=== PATIENT | female | born 1940 | race Caucasian/White ===

== ENCOUNTER 2018-05-28 11:58 | Inpatient (IN) | payer MEDICARE, SELFPAY ==
[2018-05-28] VITALS (10 sets, daily range): BP systolic 145–223; BP diastolic 77–99; PULSE 80–125; RESP 14–27; TEMP 36.8; O2SAT 70–96; BMI 31.8; BMI 30.7
--- NOTE | 2018-05-28 12:04 | NURSING ---
NO OLD EKGS
--- NOTE | 2018-05-28 12:14 | EKG12_ITS ---
Test Reason : CP SOB Blood Pressure : / mmHG Vent. Rate : 123 BPM Atrial Rate : 123 BPM P-R Int : 146 ms QRS Dur : 080 ms QT Int : 300 ms P-R-T Axes : 039 055 035 degrees QTc Int : 429 ms Sinus tachycardia Otherwise normal ECG Confirmed by SETH ROOT, LUDY ([id number]), video news editor DEBBIE RODRIGUEZ ([id number] on 06/02/2018 2:44:42 PM Referred By: SHAMAR Confirmed By:LUDY ANN MD
--- NOTE | 2018-05-28 12:14 | RAD_ITS ---
STUDY: X-RAY CHEST REASON FOR EXAM: Female, 77 years old. Chest pain and pressure x1 week TECHNIQUE: Single AP portable view of the chest. COMPARISON: None. FINDINGS: EKG leads overlie the chest Lungs are hyperexpanded with chronic interstitial changes, no superimposed acute pulmonary process. There is no demonstrated pleural abnormality. Normal size heart. Normal mediastinum and abel. Normal visualized pulmonary arteries. There is atherosclerotic calcification of the aortic arch with tortuosity. Normal visualized thoracic spine. Normal visualized ribs, clavicles, and shoulders. There is no demonstrated abnormality of the visualized soft tissue structures of the upper abdomen. RAD/Chest 1 View (Portable) IMPRESSION: Hyperexpanded lungs with chronic interstitial changes, no superimposed acute pulmonary process. Electronically Signed: Saulo Jenkins MD at 12:31 EDT , Service support ,
[2018-05-28 12:36] LABS: Absolute Lymphocyte Count 2.08 X10^3/ul (0.83-4.51); Absolute Neutrophil Count 8.3 X10^3/uL (2.0-7.7); Basophil# 0.05 X10^3/uL; Basophil% 0.4 % (0-1); Eosinophil# 0.15 X10^3/uL; Eosinophils% 1.3 % (0-5); Hematocrit 41.3 % (37-47); Hemoglobin 13.8 g/dl (12.0-15.0); Lymphocyte # 2.08 X10^3/ul (4.0); Lymphocyte % 18.4 % (19-41); Mean Corp Hgb Conc 33.4 g/gl (32-36); Mean Corpuscular Hgb 29.7 pg (27.0-32.0); Mean Platelet Vol. 10.6 fl (6.2-12.0); Monocyte% 6.2 % (0-10); Neutrophil # 8.28 X10^3/uL (2.7-7.7); Neutrophil % 73.5 % (47-70); POSITIVE COUNT NO; POSITIVE DIFFERENTIAL NO; POSITIVE MORPHOLOGY NO; Platelet Count 331 K/mm3 (150-450); RBC Distribution Width CV 13.5 % (11.6-14.6); RBC Distribution Width SD 44.1 fl (35.1-43.9); Red Blood Count 4.64 M/mm3 (4.2-5.4); White Blood Count 11.3 K/mm3 (4.4-11.0)
[2018-05-28 12:44] LABS: Anion Gap 9 (5-15); BUN 8 mg/dL (7-18); BUN/Creat Ratio 11.3 RATIO (10-20); Calcium,Total 8.6 mg/dL (8.5-10.1); Chloride 95 mmol/L (98-107); Creatinine, Serum 0.71 mg/dL (0.55-1.02); EST Glomerular Filtration Rate 85 mL/min (>60); Est Glom Filt Rate - Afr Amer 102 mL/min (>60); Estimated Creatinine Clearance 38.97 ml/min; Glucose 203 mg/dL (74-106); Sodium Level 126 mmol/L (136-145)
[2018-05-28] MEDS: Aspirin 81 MG TAB.CHEW 324 MG PO (12:48)
--- NOTE | 2018-05-28 13:12 | CT_ITS ---
STUDY: CTA CHEST REASON FOR EXAM: Female, 77 years old. Substernal chest pressure x1 week RADIATION DOSAGE (If Supplied By Facility): CTDIvol = ( 14.74 ) mGy, DLP = ( 513.49 ) mGycm TECHNIQUE: The examination was performed with the intravenous administration of 75 ml of Isovue 370 contrast material. Post-processing of the angiographic images was performed, with multiplanar reformation and 3D reconstruction. Individualized dose optimization techniques were used for this CT. COMPARISON: None. FINDINGS: Normal enhancement of the main pulmonary artery and right and left pulmonary arteries. Normal enhancement of the bilateral peripheral pulmonary arteries. There is no demonstrated pulmonary embolism. There is atherosclerotic calcification of the aortic arch with tortuosity. There is no demonstrated aortic dissection. Normal heart and pericardium. There are calcifications of the coronary arteries. There are scattered enlarged mediastinal, perihilar, and subcarinal lymph nodes measuring up to 1.3 cm in short axis dimension. There are subcentimeter axillary lymph nodes noted. There is peribronchial thickening. The lungs are hyper expanded, with flattening of the hemidiaphragms. Chronic interstitial fibrotic changes in both lung [place] with emphysematous blebs in both upper lobes and nonspecific pleural thickening. I do not see a suspicious noncalcified mass or nodule. There are degenerative changes of thoracic spine. Limited cuts through the upper abdomen show a 1.2 cm likely left adrenal adenoma. CT/CTA Chest W/WO Contrast IMPRESSION: No demonstrated PE, or thoracic aortic aneurysm or dissection. Worrisome enlarged mediastinal, perihilar, and subcarinal lymph nodes Underlying emphysema with chronic interstitial fibrotic changes, bleb formation in the apices, and diffuse pleural thickening. Evidence of chronic bronchitis 1.2 cm likely left adrenal adenoma Degenerative bony changes Electronically Signed: Saulo Jenkins MD at 14:28 EDT , Service support ,
--- NOTE | 2018-05-28 14:47 | ED.VISSUMM ---
- ER Visit Summary Date of Service: 05/28/18 Chief Complaint: Chest pain and dyspnea History of Present Illness: The patient is a 77 F who presents with midsternal tight pressure sensation with nausea and dyspnea for the past several days. She states she has this discomfort with exertion. Resolves several minutes after she stops her activity. She denies any significant past medical history. She states only risk factor for coronary artery disease is a former smoker. She quit 10 years ago. She has no history of PE or DVT. She has no prior history of PE or DVT. Review of systems positive for the chest tightness, dyspnea, dyspnea on exertion and nausea otherwise all other questions were answered with a negative response. Physical Examination: Vital signs remarkable blood pressure 233/90. Temperature 98.3 heart rate 125 respiration 27 a pulse ox of 68% on room air initially. Head is atraumatic normocephalic. Pupils are equal round reactive. Extraocular muscles are intact. TMs are pearly white with landmarks noted. Nares patent with no drainage. Posterior pharynx without erythema or exudate. Uvula is midline. There is no dysphonia or dysphasia. Trachea is midline. There is no stridor with auscultation of the neck. Heart is regular and rapid without murmur, gallop or rub. There is fine and inspiratory rales noted on auscultation bilaterally. Abdomen soft nontender. There is no asymmetry, swelling, discoloration, leg vein distention, palpable cords or tenderness along the distribution of the deep venous system. Neuro exam is nonfocal Test Results: EKG sinus tachycardia rate of 125 with normal SC interval, QRS duration and axis. There is no evidence of ischemia. Portable chest x-ray reveals interstitial fibrotic changes. White count slightly elevated 11.3 thousand. Sodium is 126 chloride 95 and glucose 205. Troponins less than 0.015. CTA of the chest was obtained because there was no obvious expiration chest x-ray for her hypoxia. There is abnormal. Hilar and mediastinal nodes per radiologist. Is no evidence of pulmonary embolus. There is chronic fibrotic changes noted. Emergency Department Course and Treatment: With history of exertional angina cardiac workup was undertaken. Once I was made aware of the low pulse ox and tachycardia and no significant N O'Denys noted on chest x-ray and CTA of the chest was obtained to evaluate for pulmonary embolus. Treatment Plan: Admit PCU Disposition: Admit PCU for further testing to evaluate because of hypoxia and exertional chest pain Impression: 1. Exertional midsternal chest pain 2. Hypoxia/respiratory failure This note was generated with [employer] dictation software. It may contain incorrect words, spelling, and punctuation that were not noted in review of the chart prior to signing ED Disposition - Plan for ED Patient: Chief Complaint: Shortness of Breath Referrals: Care Physician,No Primary [Primary Care Provider] -
--- NOTE | 2018-05-28 14:50 | NURSING ---
DR NIRAJ IBANEZ
--- NOTE | 2018-05-28 14:52 | ED.DCSUM_ITS ---
- ER Visit Summary Date of Service: 05/28/18 Chief Complaint: Chest pain and dyspnea History of Present Illness: The patient is a 77 F who presents with midsternal tight pressure sensation with nausea and dyspnea for the past several days. She states she has this discomfort with exertion. Resolves several minutes after she stops her activity. She denies any significant past medical history. She states only risk factor for coronary artery disease is a former smoker. She quit 10 years ago. She has no history of PE or DVT. She has no prior history of PE or DVT. Review of systems positive for the chest tightness, dyspnea, dyspnea on exertion and nausea otherwise all other questions were answered with a negative response. Physical Examination: Vital signs remarkable blood pressure 233/90. Temperature 98.3 heart rate 125 respiration 27 a pulse ox of 68% on room air initially. Head is atraumatic normocephalic. Pupils are equal round reactive. Extraocular muscles are intact. TMs are pearly white with landmarks noted. Nares patent with no drainage. Posterior pharynx without erythema or exudate. Uvula is midline. There is no dysphonia or dysphasia. Trachea is midline. There is no stridor with auscultation of the neck. Heart is regular and rapid without murmur, gallop or rub. There is fine and inspiratory rales noted on auscultation bilaterally. Abdomen soft nontender. There is no asymmetry, swelling, discoloration, leg vein distention, palpable cords or tenderness along the distribution of the deep venous system. Neuro exam is nonfocal Test Results: EKG sinus tachycardia rate of 125 with normal MS interval, QRS duration and axis. There is no evidence of ischemia. Portable chest x-ray reveals interstitial fibrotic changes. White count slightly elevated 11.3 thousand. Sodium is 126 chloride 95 and glucose 205. Troponins less than 0.015. CTA of the chest was obtained because there was no obvious expiration chest x- ray for her hypoxia. There is abnormal. Hilar and mediastinal nodes per radiologist. Is no evidence of pulmonary embolus. There is chronic fibrotic changes noted. Emergency Department Course and Treatment: With history of exertional angina cardiac workup was undertaken. Once I was made aware of the low pulse ox and tachycardia and no significant N O'Denys noted on chest x-ray and CTA of the chest was obtained to evaluate for pulmonary embolus. Treatment Plan: Admit PCU Disposition: Admit PCU for further testing to evaluate because of hypoxia and exertional chest pain Impression: 1. Exertional midsternal chest pain 2. Hypoxia/respiratory failure This note was generated with [employer] dictation software. It may contain incorrect words, spelling, and punctuation that were not noted in review of the chart prior to signing ED Disposition - Plan for ED Patient: Chief Complaint: Shortness of Breath Referrals: Care Physician,No Primary [Primary Care Provider] -
--- NOTE | 2018-05-28 14:52 | NURSING ---
DR HEALY IN WITH PATIENT
--- NOTE | 2018-05-28 14:57 | NURSING ---
PCU RESP FAILURE, WITH HYPOXIA, EXERTIONAL MIDSTERNAL CP IBANEZ/JOPPERI
--- NOTE | 2018-05-28 15:07 | PCM.HP.STD ---
Problem List (1) COPD with acute exacerbation Status: Acute (2) Acute respiratory failure with hypoxia Status: Acute (3) Hyponatremia Status: Acute History of Present Illness Date of Admission: 05/28/18 Chief Complaint: dyspnea on exertion The patient is a 77 year old F who has been experiencing dyspnea on exertion past week. Being that she was not getting better she presented to the emergency room and was noted to be toxic at 74% on room air. Patient was put on oxygen and did improve into the 90s. Given patient's dyspnea on exertion patient on a CT antrum of the chest that showed some blebs and also some enlarged mediastinal, perihilar and subcarinal lymph nodes. Patient has not been to a doctor in years and diagnosed with COPD in the past though is a former smoker [] Past Medical History Allergies No Known Allergies Allergy (Verified 05/28/18 12:09) Home Medications: Ambulatory Orders Medication Instructions Recorded NK [NK] 05/28/18 Psychiatric History: No pertinent psych hx Lives: Alone Smoking Status: Former smoker Alcohol: None Drugs: None - *Family History Paternal History Items: COPD Review of Systems Constitutional: Denies: Chills, Fever, Weight Change Eyes: Denies: Blurred vision, Double vision HEENT: Denies: Head Aches, Sinus Congestion, Sinus Drainage Cardiovascular: Denies: Chest Pain, Palpitations Respiratory: Reports: Cough, Shortness of breath upon exertion. Denies: Sputum production Gastrointestinal: Denies: Abdominal Pain, Nausea, Vomiting Genitourinary: Denies: Dysuria Musculoskeletal: Denies: Joint Pain, Joint Tenderness Skin: Denies: Rash, Wounds Neurological: Denies: Numbness, Tingling, Focal weakness Psychiatric: Denies: Anxiety, Depression Hematologic/ Lymphatic: Denies: Easy Bruising, Easy Bleeding, Hx of blood clot Comment: All review of systems are negative except as mentioned in the history of present illness and the other review of systems. VTE Information - Inpt Only VTE Present on Admission: No VTE Mechan Device Prophylaxis: None VTE Pharm Prophylaxis ordered?: Yes Patient Problems: Active and Suspected Problems COPD with acute exacerbation (Acute) Acute respiratory failure with hypoxia (Acute) Hyponatremia (Acute) - Physical Exam General: Alert, Cooperative, No apparent distress HEENT: Atraumatic, Normocephalic Oral: Moist Mucosa, No Gingival or Mucosal Lesions/ Ulcerations Neck: No Nodes, Thyroid Normal Size and Texture Lungs: Clear to auscultation, No rhonchi, No wheeze, Diminished Cardiovascular: Regular rate, Regular Rhythm, Normal S1, Normal S2, No murmurs Abdomen: Bowel Sounds Present, Soft, Non Tender, Non-Distended, No Hepato-splenomegaly Extremities: No edema, No Calf Tenderness Skin: No rashes, No breakdown Musculoskeletal: No Tenderness to Palpation of Joints or Extremities, No Muscle Wasting Neurological: Deep Tendon Reflexes 2+/4 and Symmetrical, Neuro grossly intact, Sensory exam intact to light touch and pain Psych/Mental Status: Normal Affect, Appropriate Vital Signs Temp Pulse Resp BP Pulse Ox 36.8 C 96 14 156/90 H 96 05/28/18 12:03 05/28/18 14:11 05/28/18 14:11 05/28/18 14:11 05/28/18 14:11 Oxygen Flow Rate (L/min) 5 Oxygen Delivery Method Nasal Cannula Weight: 81.4 kg Body Mass Index (BMI) 31.8 Laboratory Tests Past 24 Hrs 05/28/18 05/28/18 12:20 12:20 WBC 11.3 H RBC 4.64 Hgb 13.8 Hct 41.3 MCV 89.0 MCH 29.7 MCHC 33.4 RDW 13.5 RDW Differential 44.1 H Plt Count 331 MPV 10.6 Immature Gran % (Auto) 0.200 Neut % (Auto) 73.5 H Lymph % (Auto) 18.4 L [place] % (Auto) 6.2 Eos % (Auto) 1.3 Baso % (Auto) 0.4 Absolute Neuts (auto) 8.3 H Absolute Lymphs (auto) 2.08 Total Counted Not Reportable Sodium 126 L Potassium 4.0 Chloride 95 L Carbon Dioxide 22.0 Anion Gap 9 BUN 8 Creatinine 0.71 Estim Creat Clear Calc 38.97 Est GFR (MDRD) Af Amer 102 Est GFR (MDRD) Non-Af 85 BUN/Creatinine Ratio 11.3 Glucose 203 H Calcium 8.6 Troponin I < 0.015 CT imaging of the chest reviewed and showed no edema, no pulmonary embolism, no pulmonary edema. Did show some blebs in the upper airways. EKG showed sinus tachycardia with no acute changes. Assessment/Plan All Active Problems COPD with acute exacerbation (Acute) Acute respiratory failure with hypoxia (Acute) Hyponatremia (Acute) 1. Acute hypoxic respiratory failure Secondary to COPD exacerbation I suspect that the patient is probably been hypoxic for a while and then just had a tipping point where she became more short of breath with exertion. This is only suspected as patient has not seen a doctor in years. I just would have expected the patient to be much more short of breath than she was upon her arrival. Check an ambulatory pulse ox to see the patient will require oxygen upon discharge. 2. Acute COPD exacerbation Steroids with Solu-Medrol for now and bronchodilators I recommend patient follow-up with pulmonology as outpatient to undergo pulmonary function test to assess the degree of her COPD severity. 3. Hyponatremia No prior labs to compare to We will give the patient normal saline IV fluid and evaluate the BMP in the morning 4. Pulmonary lymph nodes Noted mediastinal, perihilar and subcarinal Follow-up as outpatient 5. 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 DVT prophylaxis with Lovenox 7. Advanced care planning discussed with the patient and her daughter at bedside. Patient does not have decision at this point time. I discussed with them that I am not concerned about any acute cardiac arrest or respiratory arrest during the course of her hospitalization but did implore them to discuss this further in the future. Code Visit Inpatient E&M: 40230 Init Hosp L3
--- NOTE | 2018-05-28 15:11 | NURSING ---
MED SURG ACUTE COPD EXAC NIRAJ
--- NOTE | 2018-05-28 15:19 | HP.PCM_ITS ---
Problem List (1) COPD with acute exacerbation Status: Acute (2) Acute respiratory failure with hypoxia Status: Acute (3) Hyponatremia Status: Acute History of Present Illness Date of Admission: 05/28/18 Chief Complaint: dyspnea on exertion The patient is a 77 year old F who has been experiencing dyspnea on exertion past week. Being that she was not getting better she presented to the emergency room and was noted to be toxic at 74% on room air. Patient was put on oxygen and did improve into the 90s. Given patient's dyspnea on exertion patient on a CT antrum of the chest that showed some blebs and also some enlarged mediastinal, perihilar and subcarinal lymph nodes. Patient has not been to a doctor in years and diagnosed with COPD in the past though is a former smoker [] Past Medical History Allergies No Known Allergies Allergy (Verified 05/28/18 12:09) Home Medications: Ambulatory Orders Medication Instructions Recorded NK [NK] 05/28/18 Psychiatric History: No pertinent psych hx Lives: Alone Smoking Status: Former smoker Alcohol: None Drugs: None - *Family History Paternal History Items: COPD Review of Systems Constitutional: Denies: Chills, Fever, Weight Change Eyes: Denies: Blurred vision, Double vision HEENT: Denies: Head Aches, Sinus Congestion, Sinus Drainage Cardiovascular: Denies: Chest Pain, Palpitations Respiratory: Reports: Cough, Shortness of breath upon exertion. Denies: Sputum production Gastrointestinal: Denies: Abdominal Pain, Nausea, Vomiting Genitourinary: Denies: Dysuria Musculoskeletal: Denies: Joint Pain, Joint Tenderness Skin: Denies: Rash, Wounds Neurological: Denies: Numbness, Tingling, Focal weakness Psychiatric: Denies: Anxiety, Depression Hematologic/ Lymphatic: Denies: Easy Bruising, Easy Bleeding, Hx of blood clot Comment: All review of systems are negative except as mentioned in the history of present illness and the other review of systems. VTE Information - Inpt Only VTE Present on Admission: No VTE Mechan Device Prophylaxis: None VTE Pharm Prophylaxis ordered?: Yes Patient Problems: Active and Suspected Problems COPD with acute exacerbation (Acute) Acute respiratory failure with hypoxia (Acute) Hyponatremia (Acute) - Physical Exam General: Alert, Cooperative, No apparent distress HEENT: Atraumatic, Normocephalic Oral: Moist Mucosa, No Gingival or Mucosal Lesions/ Ulcerations Neck: No Nodes, Thyroid Normal Size and Texture Lungs: Clear to auscultation, No rhonchi, No wheeze, Diminished Cardiovascular: Regular rate, Regular Rhythm, Normal S1, Normal S2, No murmurs Abdomen: Bowel Sounds Present, Soft, Non Tender, Non-Distended, No Hepato- splenomegaly Extremities: No edema, No Calf Tenderness Skin: No rashes, No breakdown Musculoskeletal: No Tenderness to Palpation of Joints or Extremities, No Muscle Wasting Neurological: Deep Tendon Reflexes 2+/4 and Symmetrical, Neuro grossly intact, Sensory exam intact to light touch and pain Psych/Mental Status: Normal Affect, Appropriate Vital Signs Temp Pulse Resp BP Pulse Ox 36.8 C 96 14 156/90 H 96 05/28/18 12:03 05/28/18 14:11 05/28/18 14:11 05/28/18 14:11 05/28/18 14:11 Oxygen Flow Rate (L/min) 5 Oxygen Delivery Method Nasal Cannula Weight: 81.4 kg Body Mass Index (BMI) 31.8 Laboratory Tests Past 24 Hrs 05/28/18 05/28/18 12:20 12:20 WBC 11.3 H RBC 4.64 Hgb 13.8 Hct 41.3 MCV 89.0 MCH 29.7 MCHC 33.4 RDW 13.5 RDW Differential 44.1 H Plt Count 331 MPV 10.6 Immature Gran % (Auto) 0.200 Neut % (Auto) 73.5 H Lymph % (Auto) 18.4 L [place] % (Auto) 6.2 Eos % (Auto) 1.3 Baso % (Auto) 0.4 Absolute Neuts (auto) 8.3 H Absolute Lymphs (auto) 2.08 Total Counted Not Reportable Sodium 126 L Potassium 4.0 Chloride 95 L Carbon Dioxide 22.0 Anion Gap 9 BUN 8 Creatinine 0.71 Estim Creat Clear Calc 38.97 Est GFR (MDRD) Af Amer 102 Est GFR (MDRD) Non-Af 85 BUN/Creatinine Ratio 11.3 Glucose 203 H Calcium 8.6 Troponin I < 0.015 CT imaging of the chest reviewed and showed no edema, no pulmonary embolism, no pulmonary edema. Did show some blebs in the upper airways. EKG showed sinus tachycardia with no acute changes. Assessment/Plan All Active Problems COPD with acute exacerbation (Acute) Acute respiratory failure with hypoxia (Acute) Hyponatremia (Acute) 1. Acute hypoxic respiratory failure * Secondary to COPD exacerbation * I suspect that the patient is probably been hypoxic for a while and then just had a tipping point where she became more short of breath with exertion. This is only suspected as patient has not seen a doctor in years. I just would have expected the patient to be much more short of breath than she was upon her arrival. * Check an ambulatory pulse ox to see the patient will require oxygen upon discharge. 2. Acute COPD exacerbation * Steroids with Solu-Medrol for now and bronchodilators * I recommend patient follow-up with pulmonology as outpatient to undergo pulmonary function test to assess the degree of her COPD severity. 3. Hyponatremia * No prior labs to compare to * We will give the patient normal saline IV fluid and evaluate the BMP in the morning 4. Pulmonary lymph nodes * Noted mediastinal, perihilar and subcarinal * Follow-up as outpatient 5. Adrenal incidentaloma * 1.2 cm * Likely an adenoma * Repeat imaging in 6-12 months 6. DVT prophylaxis with Lovenox 7. Advanced care planning discussed with the patient and her daughter at bedside. Patient does not have decision at this point time. I discussed with them that I am not concerned about any acute cardiac arrest or respiratory arrest during the course of her hospitalization but did implore them to discuss this further in the future. Code Visit Inpatient E&M: 49506 Init Hosp L3
[2018-05-28] MEDS: Ipratropium/Albuterol Sulfate 3 ML AMPUL.NEB INHALATION ×3 (16:15→23:50)
[2018-05-28] MEDS: 0.9% Normal Saline 1,000 ML 150 ML IV (16:47)
[2018-05-29] VITALS (13 sets, daily range): BP systolic 130–154; BP diastolic 73–87; PULSE 85–110; RESP 16–20; TEMP 36.4–37.2; O2SAT 84–95
[2018-05-29] MEDS: Ipratropium/Albuterol Sulfate 3 ML AMPUL.NEB INHALATION ×4 (03:38→22:53)
[2018-05-29 06:21] LABS: Absolute Lymphocyte Count 0.66 X10^3/ul (0.83-4.51); Absolute Neutrophil Count 7.1 X10^3/uL (2.0-7.7); Basophil# 0.01 X10^3/uL; Basophil% 0.1 % (0-1); Eosinophil# 0.01 X10^3/uL; Eosinophils% 0.1 % (0-5); Hemoglobin 13.1 g/dl (12.0-15.0); Lymphocyte # 0.66 X10^3/ul (4.0); Lymphocyte % 8.4 % (19-41); Mean Corp Hgb Conc 33.6 g/gl (32-36); Mean Corpuscular Hgb 30.1 pg (27.0-32.0); Mean Corpuscular Volume 89.7 fL (81-99); Mean Platelet Vol. 10.8 fl (6.2-12.0); Monocyte% 1.3 % (0-10); Neutrophil # 7.05 X10^3/uL (2.7-7.7); Neutrophil % 89.7 % (47-70); Platelet Count 316 K/mm3 (150-450); RBC Distribution Width CV 13.8 % (11.6-14.6); RBC Distribution Width SD 44.3 fl (35.1-43.9); Red Blood Count 4.35 M/mm3 (4.2-5.4); White Blood Count 7.9 K/mm3 (4.4-11.0)
[2018-05-29 06:37] LABS: Anion Gap 11 (5-15); BUN 7 mg/dL (7-18); Calcium,Total 8.7 mg/dL (8.5-10.1); Chloride 99 mmol/L (98-107); EST Glomerular Filtration Rate 86 mL/min (>60); Est Glom Filt Rate - Afr Amer 104 mL/min (>60); Estimated Creatinine Clearance 38.97 ml/min; Glucose 185 mg/dL (74-106); Potassium 4.3 mmol/L (3.5-5.1); Sodium Level 134 mmol/L (136-145)
[2018-05-29 06:38] LABS: POSITIVE COUNT NO; POSITIVE DIFFERENTIAL NO; POSITIVE MORPHOLOGY NO
[2018-05-29] MEDS: Enoxaparin 40 MG/0.4 ML Syringe SC (10:47)
--- NOTE | 2018-05-29 12:00 | CASEMGMT ---
T[facility]AND Face to Face with patient for initial transition planning/care coordination assessment. RN SUNDAY introduced self and role at [facility]. Patient sitting in chair, alert and oriented. Patient willing to participate in assessment and is able to answer all questions appropriately. Care providers, pharmacy, and demographics verified. See link attached. Patient wishes to discharge home, denies need for home health at this time. Patient states she has no further needs or concerns at this time. Patient may need home oxygen on discharge, will continue to monitor. CM to follow for discharge planning needs that may arise. Disposition Plan: Patient to discharge home with family support and follow-up plan in place.
[2018-05-29] MEDS: 0.9% NaCl Peripheral Flush Adult/Peds IV (13:20)
--- NOTE | 2018-05-29 13:58 | ECHOD_ITS ---
Reason For Study: PHTN Procedure This was a 2D Doppler, Color Flow transthoracic echocardiogram. The exam was of adequate technical quality. Exam performed portable in patient room. Left Ventricle Normal LV size. Left ventricular systolic function is hyperdynamic. The estimated ejection fraction is 75 %. There is evidence of diastolic dysfunction. No regional wall motion abnormalities noted. Right Ventricle Normal RV size. Normal systolic function. Atria Normal left atrium. Normal right atrium. No doppler evidence for ASD. Mitral Valve There is mild to moderate mitral annular calcification. Extension of the mitral annular calcification onto the posterior mitral valve leaflet. Trivial mitral valve insufficiency. Tricuspid Valve Normal tricuspid valve. Trivial tricuspid valve insufficiency. Right ventricular systolic pressure estimated to be 54 mmHg. Aortic Valve Trisinus/trileaflet aortic valve. Mild focal aortic valve calcification. Pulmonic Valve The pulmonic valve is not well visualized. Great Vessels Normal sized aortic root. Calcified aortic root. Pericardium/Pleural No pericardial effusion. MMode/2D Measurements & Calculations LVIDd: 2.5 cm IVSd: 1.5 cm LVOT diam: 1.9 cm LVIDs: 1.7 cm LVPWd: 1.1 cm LVOT area: 3.0 cm2 RVDd: 3.2 cm FS: 32.2 % Ao root diam: 3.5 cm LAV(MOD-bp): 50.6 ml LA A4 area: 16.5 cm2 LA dimension: 3.1 cm LAV(MOD-bp) Indexed: 27.8 ml/m2 LAV(MOD-sp2): 60.4 ml LAV(MOD-sp4): 39.3 ml RA A4 area: 11.1 cm2 Time Measurements MV dec time: 0.19 sec Doppler Measurements & Calculations MV E max wes: 133.1 cm/sec Lat Peak E' Wes: 9.8 cm/sec MV V2 max: 190.0 cm/sec MV A max wes: 179.8 cm/sec E/E' lat: 13.6 MV max P.4 mmHg MV E/A: 0.74 MV V2 mean: 114.8 cm/sec MV mean P.3 mmHg MV V2 VTI: 37.1 cm MVA(VTI): 2.9 cm2 MV P1/2t max wes: 151.5 cm/sec Ao V2 max: 191.2 cm/sec LV V1 max: 171.6 cm/sec MV P1/2t: 80.8 msec Ao max P.6 mmHg LV V1 max P.8 mmHg MV dec slope: 549.2 cm/sec2 Ao V2 mean: 134.5 cm/sec LV V1 mean P.2 mmHg MVA(P1/2t): 2.7 cm2 Ao mean P.3 mmHg LV V1 mean: 113.2 cm/sec Ao V2 VTI: 36.0 cm LV V1 VTI: 35.8 cm BASHIR(I,D): 2.9 cm2 BASHIR(V,D): 2.7 cm2 SV(LVOT): 105.8 ml PA V2 max: 97.5 cm/sec TR max wes: 356.5 cm/sec TR max P.8 mmHg Interpretation Summary Left ventricular systolic function is hyperdynamic. The estimated ejection fraction is 75 %. There is mild to moderate mitral annular calcification. Extension of the mitral annular calcification onto the posterior mitral valve leaflet. Trivial mitral valve insufficiency. Trivial tricuspid valve insufficiency. Mild focal aortic valve calcification. Calcified aortic root. Right ventricular systolic pressure estimated to be 54 mmHg c/w pulmonary hypertension. There is evidence of diastolic dysfunction. Ordering Physician: Martín Quarles Performed By: Casey Jiménez RCS
--- NOTE | 2018-05-29 14:57 | CHAPLAIN ---
Type of Pastoral Visit _x__ Initial Visit ___ Follow-up Visit ___ On-call Visit ___ General Patient Visit ___ Spiritual Assessment ___ Family Conference ___ Bereavement ___ Rapid Response ___ Code Blue ___ Other (describe below) Pastoral Care Referral From _x__ Patient ___ Family ___ Nurse ___ Physician ___ Welder Assistant ___ Rn Procedure ___ Other (describe below) Sacrament/Intervention _x__ Active listening ___ Anointing ___ Anabaptist ___ Bereavement ___ Communion _x__ Cordelia exploration ___ _x__ Life review _x__ Prayer ___ Reconciliation ___ Sacrament of Sick _x__ Supportive presence ___ Wedding ___ Other (describe below) Pastoral Comments patient has spiritual pain due to divorce; pt declares her relationship to God is still important however and seeks spiritual care while in hospital; pt feels she is blessed having been able to live longer than when her parents ; pt has children that are supportive but who live out of state; pt has several sisters that are close by and helpful;
--- NOTE | 2018-05-29 15:04 | PCM.CONS.GEN ---
Problem List (1) Pulmonary fibrosis Status: Acute (2) COPD with acute exacerbation Status: Acute (3) Acute respiratory failure with hypoxia Status: Acute (4) Hyponatremia Status: Acute Reason for Consult Date of Consultation: 05/29/18 Reason for Consultation: Abnormal CT scan History of Present Illness: The patient is a 77 year old F, with past medical history listed below, who presented to [facility] on 05/28/2018 secondary to midsternal chest pressure, nausea, dyspnea that was progressive over the last 7 days. Patient does report that she has had breathlessness on a daily basis for several years, but noted this was significantly worsened over the last week. Patient does report an extensive smoking history, but quit 10 years ago. Patient denies any history of PE or DVT. In the emergency room, patient was noted to have a blood pressure of 233/90 and was saturating 68% on room air initially. Patient had an elevated white count and decreased sodium at 126. Patient was admitted to the floor on supplemental oxygen. Patient reports significant improvement in dyspnea after the addition of supplemental oxygen. However, patient is required 5-6 L to maintain appropriate saturations at rest. Patient has reported improvement in chest pain. Patient denies any lower extremity edema, rashes or trauma. Patient denies any palpitations or orthopnea. Patient reports that she has never been seen by environmental test technician previously. Patient states she has never had pulmonary function testing or other workup for her dyspnea on exertion. That being said, patient states her normal exercise tolerance is approximately 50 yards. Patient states that she routinely has to wait to recover her breath. Patient does cough on a daily basis, but this is not always productive. Patient states she may have been exposed to asbestos, but denies any travel or tuberculosis history. Patient does not use inhalers at baseline. Patient states that she has not seen a physician in several years. Past Medical History Allergies No Known Allergies Allergy (Verified 05/28/18 12:09) Home Medications: Ambulatory Orders Medication Instructions Recorded NK [NK] 05/28/18 Psychiatric History: No pertinent psych hx Lives: Alone Smoking Status: Former smoker Tobacco Use: Cigarettes Alcohol: None Drugs: None - *Family History Paternal History Items: COPD Review of Systems Comment: See HPI, otherwise negative ?10 systems. Patient Problems: Active and Suspected Problems COPD with acute exacerbation (Acute) Acute respiratory failure with hypoxia (Acute) Hyponatremia (Acute) Pulmonary fibrosis (Acute) Objective: All imaging was personally reviewed. CT scan of the chest shows mediastinal lymphadenopathy, emphysematous changes, basilar fibrosis and bronchiectasis. - Physical Exam General: Alert, Oriented x3, Cooperative, No apparent distress, - - Appears stated age. Speaking in full sentences. Obese. HEENT: Atraumatic, PERRLA, EOMI, Normocephalic, - - No scleral icterus or injection noted. Oral: Moist Mucosa, No Gingival or Mucosal Lesions/ Ulcerations Neck: Supple, No JVD, No Nodes, Trachea Midline Lungs: No rhonchi, Diminished, Rales, Wheezes, - - Symmetric expansion. No dullness to percussion. Cardiovascular: Normal S1, Normal S2, No murmurs, No rub noted, No Gallop, Tachycardic Abdomen: Bowel Sounds Present, Soft, Non Tender, Non-Distended, Obese Extremities: No clubbing, No cyanosis, No edema, Capillary Refill Less than 3 Seconds Skin: No rashes, No breakdown Musculoskeletal: No Tenderness to Palpation of Joints or Extremities Lymphatic: No Cervical, Supraclavicular, or Inguinal Adenopathy Neurological: Cranial nerves II-XII grossly intact, Neuro grossly intact, Sensory exam intact to light touch and pain Vital Signs Temp Pulse Resp BP Pulse Ox 36.6 C 100 16 139/76 H 92 05/29/18 13:17 05/29/18 13:17 05/29/18 13:17 05/29/18 13:17 05/29/18 13:17 Oxygen Flow Rate (L/min) 5 Oxygen Delivery Method Nasal Cannula Weight: 78.8 kg Body Mass Index (BMI) 30.7 Intake and Output for Last 24 Hours 05/27/18 05/28/18 05/29/18 23:59 23:59 23:59 Intake Total 1330 / 1330 Balance 1330 / 1330 Laboratory Tests Past 24 Hrs 05/29/18 05/29/18 05:35 05:35 WBC 7.9 RBC 4.35 Hgb 13.1 Hct 39.0 MCV 89.7 MCH 30.1 MCHC 33.6 RDW 13.8 RDW Differential 44.3 H Plt Count 316 MPV 10.8 Immature Gran % (Auto) 0.400 Neut % (Auto) 89.7 H Lymph % (Auto) 8.4 L [place] % (Auto) 1.3 Eos % (Auto) 0.1 Baso % (Auto) 0.1 Absolute Neuts (auto) 7.1 Absolute Lymphs (auto) 0.66 L Total Counted Not Reportable Sodium 134 L Potassium 4.3 Chloride 99 Carbon Dioxide 24.0 Anion Gap 11 BUN 7 Creatinine 0.70 Estim Creat Clear Calc 38.97 Est GFR (MDRD) Af Amer 104 Est GFR (MDRD) Non-Af 86 BUN/Creatinine Ratio 10.0 Glucose 185 H Calcium 8.7 Assessment/Plan All Active Problems COPD with acute exacerbation (Acute) Acute respiratory failure with hypoxia (Acute) Hyponatremia (Acute) Pulmonary fibrosis (Acute) RECOMMENDATIONS: 1. Obtain echocardiogram 2. Wean oxygen as tolerated 3. Continue steroids and bronchodilators as ordered 4. Walking oximetry prior to discharge 5. Add Acapella therapy IMPRESSIONS: 1. Acute hypoxic respiratory failure Likely multifactorial. Patient does have fibrotic and emphysematous changes on CT scan of the chest. Outpatient pulmonary function tests would be needed for quantification and clarification of function. Patient does have extensive smoking history, but quit approximately 10 years ago. Clinical suspicion for an element of baseline hypoxemia that has been overlooked by the patient. No obvious infiltrate to suggest pneumonia, but patient does have mediastinal lymphadenopathy. 2. Probable COPD/pulmonary fibrosis/mediastinal lymphadenopathy/hyponatremia Patient with multiple findings on pulmonary windows of CT scan. Patient does have some basilar atelectasis and would benefit from initiation of Acapella therapy. Mediastinal lymphadenopathy will need to be managed by serial CT scans. Cannot exclude the need for a bronchoscopy with possible transbronchial biopsies. No obvious masses noted in the lung parenchyma. 3. Hypertensive urgency Patient presented with systolic blood pressures greater than 200. Patient is not reporting any symptoms of congestive heart failure, but would be a set up for pulmonary hypertension. Will obtain an echocardiogram for clarification of heart structure and possible valvular disease. Blood pressure is much improved at this time. 4. Advanced age/lack of primary care/probable adrenal adenoma Complicates care, management, recovery and prognosis. Did stress to the patient the importance of having a primary care physician for follow-up. Patient voiced understanding. Code Visit Inpatient E&M: 21781 Init Hosp L3
--- NOTE | 2018-05-29 16:27 | CPS ---
put patient on 50% krissy mask, she was mouth breathing, sat went up to 94%
--- NOTE | 2018-05-29 19:04 | PCM.PROGNOTE ---
Patient Problems: Active and Suspected Problems COPD with acute exacerbation (Acute) Acute respiratory failure with hypoxia (Acute) Hyponatremia (Acute) Pulmonary fibrosis (Acute) Subjective: Patient was seen and examined today, I had pulmonary medicine see the patient today due to her significant lung disease. Patient has not had any contact with a primary care doctor in years and does not take any medication. This afternoon, patient's oxygen had to be changed to a Venturi mask to maintain her O2 sat. On examination today, there were marked inspiratory rales over all lung kapadia, her CTA which was done on admission shows significant pulmonary fibrosis and COPD. - Physical Exam General: Alert, Oriented x3, Cooperative, No apparent distress, Well developed, Well nourished HEENT: Atraumatic, PERRLA, EOMI, Normocephalic Oral: Moist Mucosa Neck: Supple, No JVD, No Nuchal Rigidity, Trachea Midline, Thyroid Normal Size and Texture Lungs: Normal air movement, No rhonchi, No wheeze, Rales - Inspiratory rales over all lung kapadia Cardiovascular: Regular rate, Regular Rhythm, Normal S1, Normal S2, No murmurs, No Ectopic Activity, PMI Normal, No rub noted, No Gallop Abdomen: Bowel Sounds Present, Soft, Non Tender, Non-Distended, No hernias noted Extremities: No clubbing, No cyanosis, No edema, Capillary Refill Less than 3 Seconds Skin: No rashes, No breakdown Musculoskeletal: No Tenderness to Palpation of Joints or Extremities Neurological: Cranial nerves II-XII grossly intact, Neuro grossly intact, Sensory exam intact to light touch and pain, Coordination normal Psych/Mental Status: Normal Affect, Appropriate, Alert and oriented to time, place, person, mood and affect Vital Signs Temp Pulse Resp BP Pulse Ox 98.9 F 97 18 150/76 H 95 05/29/18 18:41 05/29/18 18:41 05/29/18 18:41 05/29/18 18:41 05/29/18 18:41 Oxygen Flow Rate (L/min) 6 Oxygen Delivery Method Nasal Cannula Weight: 78.8 kg Body Mass Index (BMI) 30.7 Intake and Output for Last 24 Hours 05/27/18 05/28/18 05/29/18 23:59 23:59 23:59 Intake Total 1630 / 1630 Balance 1630 / 1630 Laboratory Tests Past 24 Hrs 05/29/18 05/29/18 05:35 05:35 WBC 7.9 RBC 4.35 Hgb 13.1 Hct 39.0 MCV 89.7 MCH 30.1 MCHC 33.6 RDW 13.8 RDW Differential 44.3 H Plt Count 316 MPV 10.8 Immature Gran % (Auto) 0.400 Neut % (Auto) 89.7 H Lymph % (Auto) 8.4 L [place] % (Auto) 1.3 Eos % (Auto) 0.1 Baso % (Auto) 0.1 Absolute Neuts (auto) 7.1 Absolute Lymphs (auto) 0.66 L Total Counted Not Reportable Sodium 134 L Potassium 4.3 Chloride 99 Carbon Dioxide 24.0 Anion Gap 11 BUN 7 Creatinine 0.70 Estim Creat Clear Calc 38.97 Est GFR (MDRD) Af Amer 104 Est GFR (MDRD) Non-Af 86 BUN/Creatinine Ratio 10.0 Glucose 185 H Calcium 8.7 Medical Necessity - Tobacco Use Smoking Status: Former smoker Tobacco Use: Cigarettes Assessment/Plan All Active Problems COPD with acute exacerbation (Acute) Acute respiratory failure with hypoxia (Acute) Hyponatremia (Acute) Pulmonary fibrosis (Acute) #1 acute hypoxic respiratory failure-secondary to significant chronic obstructive pulmonary disease and pulmonary fibrosis-continue present treatment, pulmonary medicine saw the patient today and will be following the patient #2 pulmonary fibrosis #3 chronic obstructive pulmonary disease with exacerbation-continue IV Solu-Medrol and aerosol treatments. She will need home oxygen when she is discharged from the hospital. Code Visit Inpatient E&M: 69239 Subs Hosp L2
[2018-05-30] VITALS (11 sets, daily range): BP systolic 136–168; BP diastolic 68–89; PULSE 84–103; RESP 14–18; TEMP 36.4–37; O2SAT 75–98
[2018-05-30] MEDS: Ipratropium/Albuterol Sulfate 3 ML AMPUL.NEB INHALATION ×5 (02:35→19:36)
[2018-05-30] MEDS: Enoxaparin 40 MG/0.4 ML Syringe SC (09:39)
--- NOTE | 2018-05-30 10:30 | PN_ITS ---
Patient Problems: Active and Suspected Problems COPD with acute exacerbation (Acute) Acute respiratory failure with hypoxia (Acute) Hyponatremia (Acute) Pulmonary fibrosis (Acute) Subjective: Patient did okay overnight. Patient reports subjective improvement in dyspnea compared to yesterday. Patient reports improved rest overnight. No chest pain is reported. Patient tolerating p.o. intake. Patient still reporting some dyspnea on exertion. Objective: Echocardiogram shows an EF of 75% with diastolic dysfunction and elevated RVSP at 54 mmHg - Physical Exam General: Alert, Oriented x3, Cooperative, No apparent distress, - - Speaks in full sentences. Obese. Appears stated age. HEENT: Atraumatic, PERRLA, EOMI, Normocephalic, - - No scleral icterus or injection noted. 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 No dullness to percussion. Cardiovascular: Normal S1, Normal S2, No murmurs, No rub noted, No Gallop, Tachycardic Abdomen: Bowel Sounds Present, Soft, Non Tender, Non-Distended, Obese Extremities: No clubbing, No cyanosis, No edema, Capillary Refill Less than 3 Seconds Skin: No rashes, No breakdown Musculoskeletal: No Tenderness to Palpation of Joints or Extremities Lymphatic: No Cervical, Supraclavicular, or Inguinal Adenopathy Neurological: Cranial nerves II-XII grossly intact, Neuro grossly intact, Motor Exam 5/5 strength throughout Psych/Mental Status: Alert and oriented to time, place, person, mood and affect Vital Signs Temp Pulse Resp BP Pulse Ox 36.7 C 102 H 17 147/78 H 95 05/30/18 09:21 05/30/18 09:21 05/30/18 09:21 05/30/18 09:21 05/30/18 09:21 Oxygen Flow Rate (L/min) 6 Oxygen Delivery Method Nasal Cannula Weight: 78.8 kg Body Mass Index (BMI) 30.7 Intake and Output for Last 24 Hours 05/28/18 05/29/18 05/30/18 23:59 23:59 23:59 Intake Total 1630 / 1630 400 / 400 Balance 1630 / 1630 400 / 400 Medical Necessity - Tobacco Use Smoking Status: Former smoker Tobacco Use: Cigarettes Assessment/Plan All Active Problems COPD with acute exacerbation (Acute) Acute respiratory failure with hypoxia (Acute) Hyponatremia (Acute) Pulmonary fibrosis (Acute) RECOMMENDATIONS: 1. Like diuresis with Lasix 2. Wean oxygen as tolerated 3. Continue steroids and bronchodilators as ordered 4. Walking oximetry prior to discharge 5. Okay to add a low-dose beta-kemi from my perspective IMPRESSIONS: 1. Acute hypoxic respiratory failure Likely multifactorial. Patient does have fibrotic and emphysematous changes on CT scan of the chest. Outpatient pulmonary function tests would be needed for quantification and clarification of function. Patient does have extensive smoking history, but quit approximately 10 years ago. Clinical suspicion for an element of baseline hypoxemia that has been overlooked by the patient. No obvious infiltrate to suggest pneumonia, but patient does have mediastinal lymphadenopathy. This can be addressed as an outpatient. Echocardiogram did show severely elevated pulmonary artery pressures. An element of this is likely secondary to prolonged hypoxemia, but will give diuretic therapy to see if this helps oxygenation. 2. Probable COPD/pulmonary fibrosis/mediastinal lymphadenopathy/hyponatremia /pulmonary hypertension Patient with multiple findings on pulmonary windows of CT scan. Patient does have some basilar atelectasis and would benefit from initiation of Acapella therapy. Mediastinal lymphadenopathy will need to be managed by serial CT scans. Cannot exclude the need for a bronchoscopy with possible transbronchial biopsies. No obvious masses noted in the lung parenchyma. 3. Hypertensive urgency Patient presented with systolic blood pressures greater than 200. Patient is not reporting any symptoms of congestive heart failure, but would be a set up for pulmonary hypertension. Blood pressure is much improved at this time. Patient appears to have diastolic dysfunction on echocardiogram consistent with uncontrolled hypertension chronically. Would not be opposed to a low-dose beta-kemi 4. Advanced age/lack of primary care/probable adrenal adenoma Complicates care, management, recovery and prognosis. Did stress to the patient the importance of having a primary care physician for follow-up. Patient voiced understanding. Code Visit Inpatient E&M: 96041 Subs Hosp L2
[2018-05-30] MEDS: Furosemide 20 MG Tablet PO (12:51)
--- NOTE | 2018-05-30 16:54 | PN_ITS ---
Patient Problems: Active and Suspected Problems COPD with acute exacerbation (Acute) Acute respiratory failure with hypoxia (Acute) Hyponatremia (Acute) Pulmonary fibrosis (Acute) Subjective: Patient was seen and examined today, I talked briefly with pulmonary about her care. Pulmonary gave the patient oral Lasix today as a one-time dose. Patient appears in no respiratory distress, she is currently on 5 L of oxygen with O2 sat of 94%. - Physical Exam General: Alert, Oriented x3, Cooperative, No apparent distress, Well developed, Well nourished HEENT: Atraumatic, PERRLA, EOMI, Normocephalic Oral: Moist Mucosa Neck: Supple, No JVD, No Nuchal Rigidity, Trachea Midline, Thyroid Normal Size and Texture Lungs: Normal air movement, Diminished, Rales - Inspiratory rales at the bases bilaterally Cardiovascular: Regular rate, Regular Rhythm, Normal S1, Normal S2, No murmurs, PMI Normal, No rub noted, No Gallop Abdomen: Bowel Sounds Present, Soft, Non Tender Extremities: No edema, Capillary Refill Less than 3 Seconds Skin: No rashes, No breakdown Musculoskeletal: No Tenderness to Palpation of Joints or Extremities Neurological: Cranial nerves II-XII grossly intact, Neuro grossly intact, Sensory exam intact to light touch and pain, Coordination normal Psych/Mental Status: Normal Affect, Appropriate, Alert and oriented to time, place, person, mood and affect Vital Signs Temp Pulse Resp BP Pulse Ox 98.1 F 103 H 16 152/82 H 75 05/30/18 09:21 05/30/18 14:53 05/30/18 14:53 05/30/18 12:53 05/30/18 15:53 Oxygen Flow Rate (L/min) 4 Oxygen Delivery Method Room Air Weight: 78.8 kg Body Mass Index (BMI) 30.7 Intake and Output for Last 24 Hours 05/28/18 05/29/18 05/30/18 23:59 23:59 23:59 Intake Total 1630 / 1630 400 / 400 Balance 1630 / 1630 400 / 400 Medical Necessity - Tobacco Use Smoking Status: Former smoker Tobacco Use: Cigarettes Assessment/Plan All Active Problems COPD with acute exacerbation (Acute) Acute respiratory failure with hypoxia (Acute) Hyponatremia (Acute) Pulmonary fibrosis (Acute) #1 acute hypoxic respiratory failure-secondary to significant chronic obstructive pulmonary disease and pulmonary fibrosis-continue present treatment , she is continuing to get IV Solu-Medrol and aggressive breathing treatments, patient will need home O2 at the time of discharge most probably #2 pulmonary fibrosis #3 chronic obstructive pulmonary disease with exacerbation-continue IV Solu- Medrol and aerosol treatments. She will need home oxygen when she is discharged from the hospital. Code Visit Inpatient E&M: 51652 Subs Hosp L2
[2018-05-30] MEDS: 0.9% NaCl Peripheral Flush Adult/Peds IV (20:49)
[2018-05-31] VITALS (15 sets, daily range): BP systolic 137–163; BP diastolic 69–97; PULSE 82–105; RESP 15–20; TEMP 36.5–36.6; O2SAT 84–96
[2018-05-31] MEDS: Ipratropium/Albuterol Sulfate 3 ML AMPUL.NEB INHALATION ×5 (05:21→23:30)
[2018-05-31] MEDS: Sodium Chloride 0.65% 1 SPRAY SPRAY.BTL 2 SPRAY NASAL (06:56)
[2018-05-31] MEDS: Albuterol 2.5 MG/3 ML VIAL.NEB. INHALATION (07:02)
[2018-05-31] MEDS: Enoxaparin 40 MG/0.4 ML Syringe SC (10:02)
--- NOTE | 2018-05-31 13:22 | PN_ITS ---
Patient Problems: Active and Suspected Problems COPD with acute exacerbation (Acute) Acute respiratory failure with hypoxia (Acute) Hyponatremia (Acute) Pulmonary fibrosis (Acute) Subjective: Patient feels subjectively improved compared to yesterday. Patient's oxygenation has significantly improved at rest. Patient denies any cough. Patient has been ambulating around the room with little difficulty. - Physical Exam General: Alert, Oriented x3, Cooperative, No apparent distress, - - Speaking in full sentences. HEENT: Atraumatic, PERRLA, EOMI, Normocephalic, - - No scleral icterus or injection noted. Oral: Moist Mucosa, No Gingival or Mucosal Lesions/ Ulcerations Neck: Supple, No Nodes, Trachea Midline, JVD, Right Lungs: No rhonchi, No wheeze, Diminished, Rales, - - Symmetric expansion. No dullness to percussion. Cardiovascular: Regular rate, Regular Rhythm, Normal S1, Normal S2, No murmurs, No rub noted, No Gallop Abdomen: Bowel Sounds Present, Soft, Non Tender, Non-Distended, Obese Extremities: No clubbing, No cyanosis, Capillary Refill Less than 3 Seconds, Edema - Trace lower extremity Skin: No rashes, No breakdown Musculoskeletal: No Tenderness to Palpation of Joints or Extremities Lymphatic: No Cervical, Supraclavicular, or Inguinal Adenopathy Neurological: Cranial nerves II-XII grossly intact, Neuro grossly intact, Motor Exam 5/5 strength throughout Psych/Mental Status: Alert and oriented to time, place, person, mood and affect Vital Signs Temp Pulse Resp BP Pulse Ox 36.5 C L 88 16 156/79 H 84 05/31/18 09:58 05/31/18 11:01 05/31/18 11:01 05/31/18 09:58 05/31/18 12:18 Oxygen Flow Rate (L/min) [ 6 AMBULATION with Oxygen] Oxygen Flow Rate (L/min) 5 Oxygen Delivery Method Nasal Cannula Weight: 78.8 kg Body Mass Index (BMI) 30.7 Intake and Output for Last 24 Hours 05/29/18 05/30/18 05/31/18 23:59 23:59 23:59 Intake Total 1630 / 1630 400 / 400 930 / 930 Balance 1630 / 1630 400 / 400 930 / 930 Medical Necessity - Tobacco Use Smoking Status: Former smoker Tobacco Use: Cigarettes Assessment/Plan All Active Problems COPD with acute exacerbation (Acute) Acute respiratory failure with hypoxia (Acute) Hyponatremia (Acute) Pulmonary fibrosis (Acute) RECOMMENDATIONS: 1. Repeat diuresis with Lasix 2. Wean oxygen as tolerated 3. Wean steroids and continue bronchodilators as ordered 4. Walking oximetry prior to discharge 5. Okay to add a low-dose beta-kemi from my perspective IMPRESSIONS: 1. Acute hypoxic respiratory failure Likely multifactorial. Patient does have fibrotic and emphysematous changes on CT scan of the chest. Outpatient pulmonary function tests would be needed for quantification and clarification of function. Patient does have extensive smoking history, but quit approximately 10 years ago. Clinical suspicion for an element of baseline hypoxemia that has been overlooked by the patient. No obvious infiltrate to suggest pneumonia, but patient does have mediastinal lymphadenopathy. This can be addressed as an outpatient. Echocardiogram did show severely elevated pulmonary artery pressures. Patient with significant improvement in oxygenation despite minimal Lasix dosing. If patient still requires more than 6 L nasal cannula with ambulation, plan to repeat dosing and repeat walk test tomorrow. 2. Probable COPD/pulmonary fibrosis/mediastinal lymphadenopathy/hyponatremia /pulmonary hypertension Patient with multiple findings on pulmonary windows of CT scan. Patient does have some basilar atelectasis and would benefit from initiation of Acapella therapy. Mediastinal lymphadenopathy will need to be managed by serial CT scans. Cannot exclude the need for a bronchoscopy with possible transbronchial biopsies. No obvious masses noted in the lung parenchyma. 3. Hypertensive urgency Patient presented with systolic blood pressures greater than 200. Patient is not reporting any symptoms of congestive heart failure, but would be a set up for pulmonary hypertension. Blood pressure is much improved at this time. Patient appears to have diastolic dysfunction on echocardiogram consistent with uncontrolled hypertension chronically. Would not be opposed to a low-dose beta-kemi if wanted to be initiated by hospitalist. 4. Advanced age/lack of primary care/probable adrenal adenoma Complicates care, management, recovery and prognosis. Did stress to the patient the importance of having a primary care physician for follow-up. Patient voiced understanding. Code Visit Inpatient E&M: 89396 Subs Hosp L2
[2018-05-31] MEDS: Furosemide 20 MG Tablet PO (14:54)
--- NOTE | 2018-05-31 18:25 | PCM.PROGNOTE ---
Patient Problems: Active and Suspected Problems COPD with acute exacerbation (Acute) Acute respiratory failure with hypoxia (Acute) Hyponatremia (Acute) Pulmonary fibrosis (Acute) Subjective: Patient was seen and examined today, she was able to maintain her pulse ox on 3 L at rest but required 6 L to maintain her pulse ox on ambulation. - Physical Exam General: Alert, Oriented x3, Cooperative, No apparent distress, Well developed, Well nourished HEENT: Atraumatic, PERRLA, EOMI, Normocephalic Oral: Moist Mucosa Neck: Supple, No JVD, No Nuchal Rigidity, Trachea Midline, Thyroid Normal Size and Texture Lungs: Normal air movement, No rhonchi, No wheeze, Rales - Inspiratory rales at the bases bilaterally Cardiovascular: Regular rate, Regular Rhythm, Normal S1, Normal S2, No murmurs, No Ectopic Activity, PMI Normal, No rub noted, No Gallop Abdomen: Bowel Sounds Present, Soft, Non Tender, Non-Distended, No hernias noted Extremities: No clubbing, No cyanosis, No edema, Capillary Refill Less than 3 Seconds Skin: No rashes, No breakdown Musculoskeletal: No Tenderness to Palpation of Joints or Extremities Neurological: Cranial nerves II-XII grossly intact, Neuro grossly intact, Sensory exam intact to light touch and pain, Coordination normal Psych/Mental Status: Normal Affect, Appropriate, Alert and oriented to time, place, person, mood and affect Vital Signs Temp Pulse Resp BP Pulse Ox 97.9 F 98 16 163/74 H 96 05/31/18 14:44 05/31/18 15:24 05/31/18 15:24 05/31/18 14:44 05/31/18 14:44 Oxygen Flow Rate (L/min) [ 6 AMBULATION with Oxygen] Oxygen Flow Rate (L/min) 5 Oxygen Delivery Method Nasal Cannula Weight: 78.8 kg Body Mass Index (BMI) 30.7 Intake and Output for Last 24 Hours 05/29/18 05/30/18 05/31/18 23:59 23:59 23:59 Intake Total 1630 / 1630 400 / 400 930 / 930 Balance 1630 / 1630 400 / 400 930 / 930 Medical Necessity - Tobacco Use Smoking Status: Former smoker Tobacco Use: Cigarettes Assessment/Plan All Active Problems COPD with acute exacerbation (Acute) Acute respiratory failure with hypoxia (Acute) Hyponatremia (Acute) Pulmonary fibrosis (Acute) #1 acute hypoxic respiratory failure-secondary to significant chronic obstructive pulmonary disease and pulmonary fibrosis-continue present treatment, she is continuing to get IV Solu-Medrol and aggressive breathing treatments, patient will need home O2 at the time of discharge most probably, pulmonary medicine placed #2 pulmonary fibrosis #3 chronic obstructive pulmonary disease with exacerbation-continue IV Solu-Medrol and aerosol treatments. She will need home oxygen when she is discharged from the hospital. #4 probable hypertension-will place patient on a calcium channel kemi and low-dose diuretic, she has evidence of diastolic dysfunction on her echocardiogram. Code Visit Inpatient E&M: 93196 Subs Hosp L2
--- NOTE | 2018-05-31 18:39 | PN_ITS ---
Patient Problems: Active and Suspected Problems COPD with acute exacerbation (Acute) Acute respiratory failure with hypoxia (Acute) Hyponatremia (Acute) Pulmonary fibrosis (Acute) Subjective: Patient was seen and examined today, she was able to maintain her pulse ox on 3 L at rest but required 6 L to maintain her pulse ox on ambulation. - Physical Exam General: Alert, Oriented x3, Cooperative, No apparent distress, Well developed, Well nourished HEENT: Atraumatic, PERRLA, EOMI, Normocephalic Oral: Moist Mucosa Neck: Supple, No JVD, No Nuchal Rigidity, Trachea Midline, Thyroid Normal Size and Texture Lungs: Normal air movement, No rhonchi, No wheeze, Rales - Inspiratory rales at the bases bilaterally Cardiovascular: Regular rate, Regular Rhythm, Normal S1, Normal S2, No murmurs, No Ectopic Activity, PMI Normal, No rub noted, No Gallop Abdomen: Bowel Sounds Present, Soft, Non Tender, Non-Distended, No hernias noted Extremities: No clubbing, No cyanosis, No edema, Capillary Refill Less than 3 Seconds Skin: No rashes, No breakdown Musculoskeletal: No Tenderness to Palpation of Joints or Extremities Neurological: Cranial nerves II-XII grossly intact, Neuro grossly intact, Sensory exam intact to light touch and pain, Coordination normal Psych/Mental Status: Normal Affect, Appropriate, Alert and oriented to time, place, person, mood and affect Vital Signs Temp Pulse Resp BP Pulse Ox 97.9 F 98 16 163/74 H 96 05/31/18 14:44 05/31/18 15:24 05/31/18 15:24 05/31/18 14:44 05/31/18 14:44 Oxygen Flow Rate (L/min) [ 6 AMBULATION with Oxygen] Oxygen Flow Rate (L/min) 5 Oxygen Delivery Method Nasal Cannula Weight: 78.8 kg Body Mass Index (BMI) 30.7 Intake and Output for Last 24 Hours 05/29/18 05/30/18 05/31/18 23:59 23:59 23:59 Intake Total 1630 / 1630 400 / 400 930 / 930 Balance 1630 / 1630 400 / 400 930 / 930 Medical Necessity - Tobacco Use Smoking Status: Former smoker Tobacco Use: Cigarettes Assessment/Plan All Active Problems COPD with acute exacerbation (Acute) Acute respiratory failure with hypoxia (Acute) Hyponatremia (Acute) Pulmonary fibrosis (Acute) #1 acute hypoxic respiratory failure-secondary to significant chronic obstructive pulmonary disease and pulmonary fibrosis-continue present treatment , she is continuing to get IV Solu-Medrol and aggressive breathing treatments, patient will need home O2 at the time of discharge most probably, pulmonary medicine placed #2 pulmonary fibrosis #3 chronic obstructive pulmonary disease with exacerbation-continue IV Solu- Medrol and aerosol treatments. She will need home oxygen when she is discharged from the hospital. #4 probable hypertension-will place patient on a calcium channel kemi and low -dose diuretic, she has evidence of diastolic dysfunction on her echocardiogram. Code Visit Inpatient E&M: 95791 Subs Hosp L2
[2018-05-31] MEDS: Triamterene 37.5MG/Hctz 25MG Capsule 1 CAP PO (19:36)
[2018-05-31] MEDS: dilTIAZem CD 180 MG Capsule PO (19:36)
[2018-05-31] MEDS: 0.9% NaCl Peripheral Flush Adult/Peds IV (21:43)
[2018-06-01] VITALS (13 sets, daily range): BP systolic 124–145; BP diastolic 64–79; PULSE 74–94; RESP 16–18; TEMP 36.5–36.8; O2SAT 84–96
[2018-06-01] MEDS: Ipratropium/Albuterol Sulfate 3 ML AMPUL.NEB INHALATION ×5 (06:26→23:26)
[2018-06-01] MEDS: Triamterene 37.5MG/Hctz 25MG Capsule 1 CAP PO (08:53)
[2018-06-01] MEDS: Enoxaparin 40 MG/0.4 ML Syringe SC (08:53)
[2018-06-01] MEDS: dilTIAZem CD 180 MG Capsule PO (08:53)
[2018-06-01] MEDS: 0.9% NaCl Peripheral Flush Adult/Peds IV ×4 (09:02→21:37)
--- NOTE | 2018-06-01 10:26 | PN_ITS ---
Patient Problems: Active and Suspected Problems COPD with acute exacerbation (Acute) Acute respiratory failure with hypoxia (Acute) Hyponatremia (Acute) Pulmonary fibrosis (Acute) Subjective: The patient was seen and examined at the bedside this morning. Events from the last 24 hours have been reviewed. The patient is currently afebrile, hemodynamically stable and maintaining appropriate oxygen saturations on 3 L/ min via nasal cannula. The patient apparently desaturated yet again today into the 80s with ambulation on 6 L/min. Despite this, she does report subjective improvement in her breathing quality. Objective: The patient's most recent lab work, culture data and imaging studies have all been personally reviewed. - Physical Exam General: Alert, Cooperative, No apparent distress HEENT: Atraumatic, PERRLA, Normocephalic Oral: No Gingival or Mucosal Lesions/ Ulcerations Neck: Supple, No Nodes, Trachea Midline Lungs: Diminished, - - Mild degree of basilar rales Cardiovascular: Regular rate, Regular Rhythm, Normal S1, Normal S2, No murmurs, No rub noted, No Gallop Abdomen: Bowel Sounds Present, Soft, Non Tender, Non-Distended, Obese Extremities: No clubbing, No cyanosis, - - Trace pedal edema Skin: No breakdown Musculoskeletal: No Tenderness to Palpation of Joints or Extremities, No Muscle Wasting Lymphatic: No Cervical, Supraclavicular, or Inguinal Adenopathy Neurological: Neuro grossly intact Psych/Mental Status: Alert and oriented to time, place, person, mood and affect Vital Signs Temp Pulse Resp BP Pulse Ox 98.0 F 89 18 124/64 H 92 06/01/18 08:55 06/01/18 08:55 06/01/18 08:55 06/01/18 08:55 06/01/18 08:55 Oxygen Flow Rate (L/min) [ 6 AMBULATION with Oxygen] Oxygen Flow Rate (L/min) 3 Oxygen Delivery Method Nasal Cannula Weight: 173 lb 11.588 oz Body Mass Index (BMI) 30.7 Intake and Output for Last 24 Hours 05/30/18 05/31/18 06/01/18 23:59 23:59 23:59 Intake Total 400 / 400 930 / 930 620 / 620 Balance 400 / 400 930 / 930 620 / 620 Clinical Impression(s) from Imaging Studies Chest X-Ray 05/28/18 12:14 IMPRESSION: Hyperexpanded lungs with chronic interstitial changes, no superimposed acute pulmonary process. Electronically Signed: Saulo Jenkins MD at 12:31 EDT , Service support , Chest CTA 05/28/18 13:12 IMPRESSION: No demonstrated PE, or thoracic aortic aneurysm or dissection. Worrisome enlarged mediastinal, perihilar, and subcarinal lymph nodes Underlying emphysema with chronic interstitial fibrotic changes, bleb formation in the apices, and diffuse pleural thickening. Evidence of chronic bronchitis 1.2 cm likely left adrenal adenoma Degenerative bony changes Electronically Signed: Saulo Jenkins MD at 14:28 EDT , Service support , Medical Necessity - Tobacco Use Smoking Status: Former smoker Tobacco Use: Cigarettes Assessment/Plan All Active Problems COPD with acute exacerbation (Acute) Acute respiratory failure with hypoxia (Acute) Hyponatremia (Acute) Pulmonary fibrosis (Acute) RECOMMENDATIONS: 1. Recommend administering IV Lasix yet today. 2. Transition from IV steroids to prednisone 40 mg daily by mouth. 3. Encourage aggressive incentive spirometer use and mobilize patient as tolerated. 4. Wean supplemental oxygen to maintain saturations at or above 90%. 5. Plan to repeat ambulatory walk test tomorrow morning. 6. Continue bronchodilators as ordered. IMPRESSIONS: 1. Acute hypoxic respiratory failure Likely multifactorial. Patient does have fibrotic and emphysematous changes on CT scan of the chest. Outpatient pulmonary function tests would be needed for quantification and clarification of function. Patient does have extensive smoking history, but quit approximately 10 years ago. Clinical suspicion for an element of baseline hypoxemia that has been overlooked by the patient. No obvious infiltrate to suggest pneumonia, but patient does have mediastinal lymphadenopathy. This can be addressed as an outpatient. Echocardiogram did show severely elevated pulmonary artery pressures. Therefore, recommend continued attempts at diuresis with IV Lasix, given significant exertional hypoxia noted. Plan to repeat 6 minute walk test tomorrow. Additionally, recommend initiation of incentive spirometry. 2. Probable COPD/pulmonary fibrosis/mediastinal lymphadenopathy/hyponatremia/ pulmonary hypertension Patient with multiple findings on pulmonary windows of CT scan. Patient does have some basilar atelectasis and would benefit from initiation of Acapella therapy. Mediastinal lymphadenopathy will need to be managed by serial CT scans. Cannot exclude the need for a bronchoscopy with possible transbronchial biopsies. No obvious masses noted in the lung parenchyma. 3. Hypertensive urgency Patient presented with systolic blood pressures greater than 200. Patient is not reporting any symptoms of congestive heart failure, but would be a set up for pulmonary hypertension. Blood pressure is much improved at this time. Patient appears to have diastolic dysfunction on echocardiogram consistent with uncontrolled hypertension chronically. 4. Advanced age/lack of primary care/probable adrenal adenoma Complicates care, management, recovery and prognosis. This note was generated with [employer] software. It may contain incorrect words, spelling, and punctuation that were not noted in checking the note before signing. Code Visit Inpatient E&M: 92444 Subs Hosp L2
[2018-06-01] MEDS: Furosemide 20 MG/2 ML VIAL IV ×2 (12:48→18:23)
--- NOTE | 2018-06-01 20:25 | PCM.PROGNOTE ---
Patient Problems: Active and Suspected Problems COPD with acute exacerbation (Acute) Acute respiratory failure with hypoxia (Acute) Hyponatremia (Acute) Pulmonary fibrosis (Acute) Subjective: Patient was seen and examined today, she does not complain of any increased shortness of breath or chest discomfort, I briefly discussed her care with pulmonary medicine today, pulmonary medicine suggested that we try a mild diuresis to see if it would improve her oxygenation. She is still requiring high flow oxygen on ambulation and with high flow oxygen is still having desaturation. I took the patient off Dyazide which I had started yesterday due to the fact she is now on IV Lasix. - Physical Exam General: Alert, Oriented x3, Cooperative, No apparent distress, Well developed, Well nourished HEENT: Atraumatic, PERRLA, EOMI, Normocephalic Oral: Moist Mucosa Neck: Supple, No JVD, No Nuchal Rigidity, Trachea Midline, Thyroid Normal Size and Texture Lungs: Normal air movement, No rhonchi, Rales - Inspiratory rales are noted at the bases Cardiovascular: Regular rate, Regular Rhythm, Normal S1, Normal S2, No murmurs, PMI Normal, No rub noted, No Gallop Abdomen: Bowel Sounds Present, Soft, Non Tender, Non-Distended, No hernias noted Extremities: No clubbing, No cyanosis, No edema, Capillary Refill Less than 3 Seconds Skin: No rashes, No breakdown Musculoskeletal: No Tenderness to Palpation of Joints or Extremities Neurological: Cranial nerves II-XII grossly intact, Neuro grossly intact, Sensory exam intact to light touch and pain, Coordination normal Psych/Mental Status: Normal Affect, Appropriate, Alert and oriented to time, place, person, mood and affect Vital Signs Temp Pulse Resp BP Pulse Ox 98.2 F 84 18 141/79 H 92 06/01/18 15:10 06/01/18 19:42 06/01/18 19:42 06/01/18 15:10 06/01/18 15:10 Oxygen Flow Rate (L/min) [ 6 AMBULATION with Oxygen] Oxygen Flow Rate (L/min) 3 Oxygen Delivery Method Nasal Cannula Weight: 78.8 kg Body Mass Index (BMI) 30.7 Intake and Output for Last 24 Hours 05/30/18 05/31/18 06/01/18 23:59 23:59 23:59 Intake Total 400 / 400 930 / 930 1710 / 1710 Output Total 500 / 500 Balance 400 / 400 930 / 930 1210 / 1210 Medical Necessity - Tobacco Use Smoking Status: Former smoker Tobacco Use: Cigarettes Assessment/Plan All Active Problems COPD with acute exacerbation (Acute) Acute respiratory failure with hypoxia (Acute) Hyponatremia (Acute) Pulmonary fibrosis (Acute) #1 acute hypoxic respiratory failure-secondary to significant chronic obstructive pulmonary disease and pulmonary fibrosis-continue present treatment with the addition of IV Lasix, reevaluate patient tomorrow for possible discharge on home O2 #2 pulmonary fibrosis #3 chronic obstructive pulmonary disease with exacerbation #4 probable hypertension-Cardizem CD will continue, she is also on IV Lasix at the present time Code Visit Inpatient E&M: [id number] Subs Hosp L2
[2018-06-02] VITALS (13 sets, daily range): BP systolic 148–157; BP diastolic 66–77; PULSE 76–94; RESP 16–22; TEMP 36.4–36.8; O2SAT 84–96
[2018-06-02] MEDS: Ipratropium/Albuterol Sulfate 3 ML AMPUL.NEB INHALATION ×5 (03:51→19:42)
--- NOTE | 2018-06-02 07:06 | PN_ITS ---
Patient Problems: Active and Suspected Problems COPD with acute exacerbation (Acute) Acute respiratory failure with hypoxia (Acute) Hyponatremia (Acute) Pulmonary fibrosis (Acute) Subjective: The patient was seen and examined at the bedside this morning. Events from the last 24 hours have been reviewed. The patient is currently afebrile, hemodynamically stable and maintaining appropriate oxygen saturations on 3 L/ min via nasal cannula. The patient did receive IV Lasix 20 mg twice yesterday. This morning, she reports that her breathing quality feels okay. Her only complaint is for that of dry nasal passages due to the use of supplemental oxygen. She is utilizing saline nasal sprays accordingly. She has yet to undergo a repeat walk test in the hallway. Objective: The patient's most recent lab work, culture data and imaging studies have all been personally reviewed. - Physical Exam General: Alert, Oriented x3, Cooperative, No apparent distress, - - Sitting in bedside recliner. HEENT: Atraumatic, PERRLA, Normocephalic Oral: No Gingival or Mucosal Lesions/ Ulcerations Neck: Supple, No Nodes, Trachea Midline Lungs: No rhonchi, No wheeze, No rales, Diminished Cardiovascular: Regular rate, Regular Rhythm, Normal S1, Normal S2, No murmurs Abdomen: Bowel Sounds Present, Soft, Non Tender, Obese Extremities: No clubbing, No cyanosis, No edema Skin: No breakdown Musculoskeletal: No Tenderness to Palpation of Joints or Extremities, No Muscle Wasting Lymphatic: No Cervical, Supraclavicular, or Inguinal Adenopathy Neurological: Neuro grossly intact Psych/Mental Status: Alert and oriented to time, place, person, mood and affect Vital Signs Temp Pulse Resp BP Pulse Ox 97.9 F 84 20 H 157/77 H 87 06/02/18 03:30 06/02/18 06:57 06/02/18 06:57 06/02/18 03:30 06/02/18 03:53 Oxygen Flow Rate (L/min) [ 6 AMBULATION with Oxygen] Oxygen Flow Rate (L/min) 3 Oxygen Delivery Method Nasal Cannula Weight: 173 lb 11.588 oz Body Mass Index (BMI) 30.7 Intake and Output for Last 24 Hours 05/31/18 06/01/18 06/02/18 23:59 23:59 23:59 Intake Total 930 / 930 1710 / 1710 1590 / 1590 Output Total 500 / 500 1150 / 1150 Balance 930 / 930 1210 / 1210 440 / 440 Clinical Impression(s) from Imaging Studies Chest X-Ray 05/28/18 12:14 IMPRESSION: Hyperexpanded lungs with chronic interstitial changes, no superimposed acute pulmonary process. Electronically Signed: Saulo Jenkins MD at 12:31 EDT , Service support , Chest CTA 05/28/18 13:12 IMPRESSION: No demonstrated PE, or thoracic aortic aneurysm or dissection. Worrisome enlarged mediastinal, perihilar, and subcarinal lymph nodes Underlying emphysema with chronic interstitial fibrotic changes, bleb formation in the apices, and diffuse pleural thickening. Evidence of chronic bronchitis 1.2 cm likely left adrenal adenoma Degenerative bony changes Electronically Signed: Saulo Jenkins MD at 14:28 EDT , Service support , Medical Necessity - Tobacco Use Smoking Status: Former smoker Tobacco Use: Cigarettes Assessment/Plan All Active Problems COPD with acute exacerbation (Acute) Acute respiratory failure with hypoxia (Acute) Hyponatremia (Acute) Pulmonary fibrosis (Acute) RECOMMENDATIONS: 1. Obtain BMP this morning given diuretic utilization 2. Repeat walking oximetry study to assess for exertional oxygen need. 3. If the patient is able to maintain oxygen saturations with exertion on 6 L/ min or less, she could be discharged home. 4. Transition from IV steroids to prednisone 40 mg daily by mouth. Plan for taper at discharge. 5. Encourage incentive spirometer use and mobilize patient as tolerated. 6. Wean supplemental oxygen to maintain saturations at or above 88%. 7. Continue scheduled bronchodilators. IMPRESSIONS: 1. Acute hypoxic respiratory failure Likely multifactorial. Patient does have fibrotic and emphysematous changes on CT scan of the chest. Outpatient pulmonary function tests would be needed for quantification and clarification of function. Patient does have extensive smoking history, but quit approximately 10 years ago. Clinical suspicion for an element of baseline hypoxemia that has been overlooked by the patient. No obvious infiltrate to suggest pneumonia, but patient does have mediastinal lymphadenopathy. This can be addressed as an outpatient. Echocardiogram did show severely elevated pulmonary artery pressures. Therefore, recommend continued attempts at diuresis with IV Lasix, given significant exertional hypoxia noted. Plan to repeat ambulatory walk test this morning. Recommend checking BMP given diuretic use. Encourage incentive spirometer use and mobilize patient is tolerated. 2. Probable COPD/pulmonary fibrosis/mediastinal lymphadenopathy/hyponatremia/ pulmonary hypertension Patient with multiple findings on pulmonary windows of CT scan. Patient does have some basilar atelectasis and would benefit from initiation of Acapella therapy. Mediastinal lymphadenopathy will need to be managed by serial CT scans. Cannot exclude the need for a bronchoscopy with possible transbronchial biopsies. No obvious masses noted in the lung parenchyma. 3. Hypertensive urgency Patient presented with systolic blood pressures greater than 200. Patient is not reporting any symptoms of congestive heart failure, but would be a set up for pulmonary hypertension. Blood pressure is much improved at this time. Patient appears to have diastolic dysfunction on echocardiogram consistent with uncontrolled hypertension chronically. 4. Advanced age/lack of primary care/probable adrenal adenoma Complicates care, management, recovery and prognosis. This note was generated with [employer] dictation software. It may contain incorrect words, spelling, and punctuation that were not noted in checking the note before signing. Code Visit Inpatient E&M: 83715 Subs Hosp L2
[2018-06-02 07:54] LABS: Anion Gap 12 (5-15); BUN 24 mg/dL (7-18); BUN/Creat Ratio 27.9 RATIO (10-20); Calcium,Total 9.4 mg/dL (8.5-10.1); Chloride 88 mmol/L (98-107); Creatinine, Serum 0.86 mg/dL (0.55-1.02); EST Glomerular Filtration Rate 68 mL/min (>60); Est Glom Filt Rate - Afr Amer 82 mL/min (>60); Estimated Creatinine Clearance 45.32 ml/min; Glucose 163 mg/dL (74-106); Potassium 5.2 mmol/L (3.5-5.1); Sodium Level 129 mmol/L (136-145)
[2018-06-02] MEDS: Furosemide 20 MG/2 ML VIAL IV ×2 (09:27→18:16)
[2018-06-02] MEDS: Enoxaparin 40 MG/0.4 ML Syringe SC (09:27)
[2018-06-02] MEDS: dilTIAZem CD 180 MG Capsule PO (09:27)
[2018-06-02] MEDS: 0.9% NaCl Peripheral Flush Adult/Peds IV ×3 (09:29→21:52)
--- NOTE | 2018-06-02 11:11 | CPS ---
Per Dr Vazquez; maintain spo2 of 88% & above
--- NOTE | 2018-06-02 14:00 | CASEMGMT ---
[facility] updated that patient qualified for home oxygen. Patient will also need nebulizer at discharge. [facility] obtained script for oxygen and nebulizer and faxed referral to [facility], insurance preferred provider. Per Dr. Alberto's request, [facility] discussed with patient preferred PCP that she would like to be setup with after discharge. Patient preferred Dr. Chowdary or [facility]. [facility] called [facility], Dr. Chowdary is no accepting new patients and appt setup with Dr. Zuleta for 06/19/18 1100am, which was first appt available. Dr. Alberto and patient updated regarding oxygen and nebulizer setup and appt setup with [facility]. CM will continue to follow this patient and plan for a safe discharge.
--- NOTE | 2018-06-02 14:50 | NURSING ---
late entry for 1010- pt requiring 3 liters oxygen at rest= 93%.
--- NOTE | 2018-06-02 20:16 | PCM.PROGNOTE ---
Patient Problems: Active and Suspected Problems COPD with acute exacerbation (Acute) Acute respiratory failure with hypoxia (Acute) Hyponatremia (Acute) Pulmonary fibrosis (Acute) Subjective: Patient was seen and examined today, her sodium was 129, she was able to keep her O2 sat at 88% while ambulating on 6 L of O2. Patient will need training on how to give herself nebulizer treatments, I will reevaluate her again in the morning to make sure that she is stable for discharge, I will change her to oral Lasix starting tomorrow morning and repeat her BMP. - Physical Exam General: Alert, Oriented x3, Cooperative, No apparent distress, Well developed, Well nourished HEENT: Atraumatic, PERRLA, EOMI, Normocephalic Oral: Moist Mucosa Neck: Supple, No JVD, No Nuchal Rigidity, Trachea Midline, Thyroid Normal Size and Texture Lungs: Normal air movement, No rhonchi, No wheeze, Rales - Inspiratory rales are noted at the bases Cardiovascular: Regular rate, Regular Rhythm, Normal S1, Normal S2, No murmurs, No Ectopic Activity, PMI Normal, No rub noted, No Gallop Abdomen: Bowel Sounds Present, Soft, Non Tender, Non-Distended, No hernias noted Extremities: No clubbing, No cyanosis, No edema, Capillary Refill Less than 3 Seconds Skin: No rashes, No breakdown Musculoskeletal: No Tenderness to Palpation of Joints or Extremities Neurological: Cranial nerves II-XII grossly intact, Neuro grossly intact, Muscle tone normal, Sensory exam intact to light touch and pain, Coordination normal Psych/Mental Status: Normal Affect, Appropriate, Alert and oriented to time, place, person, mood and affect Vital Signs Temp Pulse Resp BP Pulse Ox 98.3 F 94 18 148/67 H 96 06/02/18 14:34 06/02/18 14:34 06/02/18 14:34 06/02/18 14:34 06/02/18 14:34 Oxygen Flow Rate (L/min) [ 6 AMBULATION with Oxygen] Oxygen Flow Rate (L/min) [At 0 REST on Room Air] Oxygen Flow Rate (L/min) 4 Oxygen Delivery Method Nasal Cannula Weight: 78.8 kg Body Mass Index (BMI) 30.7 Intake and Output for Last 24 Hours 05/31/18 06/01/18 06/02/18 23:59 23:59 23:59 Intake Total 930 / 930 1710 / 1710 2660 / 2660 Output Total 500 / 500 2725 / 2725 Balance 930 / 930 1210 / 1210 -65 / -65 Laboratory Tests Past 24 Hrs 06/02/18 07:20 Sodium 129 L Potassium 5.2 H Chloride 88 L Carbon Dioxide 29.0 Anion Gap 12 BUN 24 H Creatinine 0.86 Estim Creat Clear Calc 45.32 Est GFR (MDRD) Af Amer 82 Est GFR (MDRD) Non-Af 68 BUN/Creatinine Ratio 27.9 H Glucose 163 H Calcium 9.4 Medical Necessity - Tobacco Use Smoking Status: Former smoker Tobacco Use: Cigarettes Assessment/Plan All Active Problems COPD with acute exacerbation (Acute) Acute respiratory failure with hypoxia (Acute) Hyponatremia (Acute) Pulmonary fibrosis (Acute) #1 acute hypoxic respiratory failure-secondary to significant chronic obstructive pulmonary disease and pulmonary fibrosis-continue present treatment with the addition of p.o. Lasix, patient will be reevaluated in the morning for possible discharge #2 pulmonary fibrosis #3 chronic obstructive pulmonary disease with exacerbation #4 probable hypertension-Cardizem CD will continue, she will also continue on p.o. Lasix Code Visit Inpatient E&M: 81987 Subs Hosp L2
--- NOTE | 2018-06-02 20:17 | PCM.HOSP.N ---
Hospitalist Note Patient requires portable oxygen at home at a flow rate of 6 L/min via nasal cannula when ambulating, she is fully ambulatory at home and she is also ambulatory outside of her home. Her oxygen saturation when ambulating on 6 L via nasal cannula was 88%. She has been instructed on the use of the oxygen and has agreed to use it at home and when outside of her home.
[2018-06-03] VITALS (8 sets, daily range): BP systolic 132–145; BP diastolic 68–77; PULSE 71–95; RESP 16–18; TEMP 36.4–36.6; O2SAT 87–96
[2018-06-03] MEDS: Ipratropium/Albuterol Sulfate 3 ML AMPUL.NEB INHALATION ×3 (03:53→11:26)
[2018-06-03 06:13] LABS: Anion Gap 11 (5-15); BUN 24 mg/dL (7-18); BUN/Creat Ratio 29.4 RATIO (10-20); Calcium,Total 8.8 mg/dL (8.5-10.1); Chloride 91 mmol/L (98-107); Creatinine, Serum 0.82 mg/dL (0.55-1.02); EST Glomerular Filtration Rate 72 mL/min (>60); Est Glom Filt Rate - Afr Amer 87 mL/min (>60); Estimated Creatinine Clearance 47.53 ml/min; Glucose 193 mg/dL (74-106); Potassium 4.6 mmol/L (3.5-5.1); Sodium Level 131 mmol/L (136-145)
[2018-06-03] MEDS: dilTIAZem CD 180 MG Capsule PO (09:48)
[2018-06-03] MEDS: Enoxaparin 40 MG/0.4 ML Syringe SC (09:48)
[2018-06-03] MEDS: Furosemide 40 MG Tablet PO (09:48)
[2018-06-03] MEDS: 0.9% NaCl Peripheral Flush Adult/Peds IV (09:48)
--- NOTE | 2018-06-03 09:48 | PCM.PROGNOTE ---
Patient Problems: Active and Suspected Problems COPD with acute exacerbation (Acute) Acute respiratory failure with hypoxia (Acute) Hyponatremia (Acute) Pulmonary fibrosis (Acute) Subjective: The patient was seen and examined at the bedside this morning. Events from the last 24 hours have been reviewed. The patient is currently afebrile, hemodynamically stable and maintaining appropriate oxygen saturations on 4 L/min via nasal cannula. She is without specific complaints this morning but is anxious to be discharged home. Objective: The patient's most recent lab work, culture data and imaging studies have all been personally reviewed. - Physical Exam General: Alert, Oriented x3, Cooperative, No apparent distress HEENT: Atraumatic, PERRLA, Normocephalic Oral: No Gingival or Mucosal Lesions/ Ulcerations Neck: Supple, No Nodes, Trachea Midline Lungs: No rhonchi, No wheeze, No rales, Diminished Cardiovascular: Regular rate, Regular Rhythm, Normal S1, Normal S2, No murmurs Abdomen: Bowel Sounds Present, Soft, Non Tender, Obese Extremities: No clubbing, No cyanosis, No edema Skin: No breakdown Musculoskeletal: No Tenderness to Palpation of Joints or Extremities Lymphatic: No Cervical, Supraclavicular, or Inguinal Adenopathy Neurological: Neuro grossly intact Psych/Mental Status: Normal Affect, Appropriate Vital Signs Temp Pulse Resp BP Pulse Ox 97.8 F 91 18 141/77 H 94 06/03/18 08:24 06/03/18 08:24 06/03/18 08:24 06/03/18 08:24 06/03/18 08:24 Oxygen Flow Rate (L/min) [ 6 AMBULATION with Oxygen] Oxygen Flow Rate (L/min) [At 0 REST on Room Air] Oxygen Flow Rate (L/min) 4 Oxygen Delivery Method Nasal Cannula Weight: 173 lb 11.588 oz Body Mass Index (BMI) 30.7 Intake and Output for Last 24 Hours 06/01/18 06/02/18 06/03/18 23:59 23:59 23:59 Intake Total 1710 / 1710 2660 / 2660 600 / 600 Output Total 500 / 500 2725 / 2725 1600 / 1600 Balance 1210 / 1210 -65 / -65 -1000 / -1000 Laboratory Tests Past 24 Hrs 06/03/18 05:36 Sodium 131 L Potassium 4.6 Chloride 91 L Carbon Dioxide 29.0 Anion Gap 11 BUN 24 H Creatinine 0.82 Estim Creat Clear Calc 47.53 Est GFR (MDRD) Af Amer 87 Est GFR (MDRD) Non-Af 72 BUN/Creatinine Ratio 29.4 H Glucose 193 H Calcium 8.8 Clinical Impression(s) from Imaging Studies Chest X-Ray 05/28/18 12:14 IMPRESSION: Hyperexpanded lungs with chronic interstitial changes, no superimposed acute pulmonary process. Electronically Signed: Saulo Jenkins MD at 12:31 EDT , Service support , Chest CTA 05/28/18 13:12 IMPRESSION: No demonstrated PE, or thoracic aortic aneurysm or dissection. Worrisome enlarged mediastinal, perihilar, and subcarinal lymph nodes Underlying emphysema with chronic interstitial fibrotic changes, bleb formation in the apices, and diffuse pleural thickening. Evidence of chronic bronchitis 1.2 cm likely left adrenal adenoma Degenerative bony changes Electronically Signed: Saulo Jenkins MD at 14:28 EDT , Service support , Medical Necessity - Tobacco Use Smoking Status: Former smoker Tobacco Use: Cigarettes Assessment/Plan All Active Problems COPD with acute exacerbation (Acute) Acute respiratory failure with hypoxia (Acute) Hyponatremia (Acute) Pulmonary fibrosis (Acute) RECOMMENDATIONS: 1. Repeat walking oximetry study to assess for exertional oxygen need. 2. If the patient is able to maintain oxygen saturations with exertion on 6 L/min or less, she could be discharged home. 3. Transition from IV steroids to prednisone 40 mg daily by mouth. Plan for taper at discharge. 4. Encourage incentive spirometer use and mobilize patient as tolerated. 5. Wean supplemental oxygen to maintain saturations at or above 88%. 6. Continue scheduled bronchodilators. 7. The patient is to follow up with our nurse practitioner in the pulmonary medicine clinic within 2 weeks of her discharge from the hospital. IMPRESSIONS: 1. Acute hypoxic respiratory failure Likely multifactorial. Patient does have fibrotic and emphysematous changes on CT scan of the chest. Outpatient pulmonary function tests would be needed for quantification and clarification of function. Patient does have extensive smoking history, but quit approximately 10 years ago. Clinical suspicion for an element of baseline hypoxemia that has been overlooked by the patient. No obvious infiltrate to suggest pneumonia, but patient does have mediastinal lymphadenopathy. This can be addressed as an outpatient. Echocardiogram did show severely elevated pulmonary artery pressures. Therefore, recommend continued attempts at diuresis with PO lasix regimen. Plan to repeat ambulatory walk test this morning. Encourage incentive spirometer use and mobilize patient is tolerated. 2. Probable COPD/pulmonary fibrosis/mediastinal lymphadenopathy/hyponatremia/pulmonary hypertension Patient with multiple findings on pulmonary windows of CT scan. Patient does have some basilar atelectasis and would benefit from initiation of Acapella therapy. Mediastinal lymphadenopathy will need to be managed by serial CT scans. Cannot exclude the need for a bronchoscopy with possible transbronchial biopsies. No obvious masses noted in the lung parenchyma. 3. Hypertensive urgency Patient presented with systolic blood pressures greater than 200. Patient is not reporting any symptoms of congestive heart failure, but would be a set up for pulmonary hypertension. Blood pressure is much improved at this time. Patient appears to have diastolic dysfunction on echocardiogram consistent with uncontrolled hypertension chronically. 4. Advanced age/lack of primary care/probable adrenal adenoma Complicates care, management, recovery and prognosis. This note was generated with [employer] dictation software. It may contain incorrect words, spelling, and punctuation that were not noted in checking the note before signing. Code Visit Inpatient E&M: 20952 Subs Hosp L2
--- NOTE | 2018-06-03 16:46 | PCA ---
D/C'd IV per nurse's request.
--- NOTE | 2018-06-03 16:46 | PCM.DC ---
- Discharge Diagnoses Current Active Problems: Current Active and Chronic Problems COPD with acute exacerbation (Acute) Acute respiratory failure with hypoxia (Acute) Hyponatremia (Acute) Pulmonary fibrosis (Acute) You will use the following diet at home:: No restrictions Your food should be the consistency of: Regular Your liquids should be the consistency of: Regular/Thin Discharge Activity: Return to Normal Activity Weight Bearing Status: Full weight bearing Additional Instructions: oxygen continuously as directed Allergies/Adverse Reactions: Allergies No Known Allergies Allergy (Verified 05/28/18 12:09) Medications to take at Discharge Diltiazem CD [Cardizem CD] 180 mg PO DAILY #30 cap 06/03/18 Furosemide [Lasix] 40 mg PO DAILY #30 tab 06/03/18 Ipratropium/Albuterol Sulfate [Duoneb] 3 ml INHALATION Q4H.RT ampul.neb 06/03/18 Prednisone 10 mg PO UD #30 tab 06/03/18 Sodium Chloride 0.65% [[place] Nasal [place]] 2 spray NASAL Q1H PRN PRN spray.btl 06/03/18 The following prescriptions were given: Diltiazem CD [Cardizem CD] 180 mg PO DAILY #30 cap Furosemide [Lasix] 40 mg PO DAILY #30 tab Prednisone 10 mg PO UD #30 tab Primary Care Physician: Care Physician,No Primary [Primary Care Provider] - Test Results: Test results from this visit will be discussed in further detail at your follow-up appointment, if applicable. Please Follow Up With: Benedicto Zuleta DO When: Friday Please Follow Up With: Med Vazquez DO When: within 2 weeks
--- NOTE | 2018-06-04 16:14 | CASEMGMT ---
[facility] attempted to call patient regarding nebulizer medication [facility] RN SUNDAY left voice message with information and return contact information.
--- NOTE | 2018-06-06 16:24 | PCM.DC.SUM ---
Discharge Date and Diagnosis Date of Admission: 05/28/18 Date of Discharge: 06/03/18 - Primary Discharge Diagnosis #1 acute hypoxic respiratory failure-secondary to significant chronic obstructive pulmonary disease and pulmonary fibrosis #2 pulmonary fibrosis #3 chronic obstructive pulmonary disease with exacerbation #4 hypertension #5 pulmonary hypertension Hospital Course and Treatment Operations: None Procedures: 2-D Echocardiogram Summary of Care Provided: The patient is a 77 year old F who was seen in the emergency room at [facility] with chief complaint of chest pain and dyspnea, he denies any significant past medical history and does not see a physician regularly. Evaluation in the emergency room included an EKG which showed a sinus tachycardia at 125, no evidence of ischemic changes noted, portable chest x-ray revealed interstitial fibrotic changes, white count was elevated slightly 11.3, sodium was 126, glucose was 205. CT of the chest was obtained and it was abnormal for hilar and mediastinal nodes per the radiologist, there is no evidence of pulmonary embolus, chronic fibrotic changes and COPD was noted. Patient required oxygen to maintain her pulse ox above 90, initially patient's oxygen saturation on room air over 68%. Patient was admitted to PCU for hypoxic respiratory failure, she was maintained on high flow oxygen but no BiPAP. He was given IV corticosteroids and aggressive aerosol treatments, she was seen in consultation by pulmonary medicine, she underwent diuresis and had echocardiogram performed which showed moderate pulmonary hypertension and a preserved ejection fraction. Patient's O2 requirement gradually improved, she did require 6 L to maintain her pulse ox on walking however at the time of discharge. She was placed on medication for hypertension during her hospital stay. Patient was seen and examined on 06/03/18 and felt to be in stable condition for discharge home, she was to follow-up as an outpatient with pulmonary medicine. Discharge Activity: Return to Normal Activity Weight Bearing Status: Full weight bearing Home Medications: Medications to take at Discharge Diltiazem CD [Cardizem CD] 180 mg PO DAILY #30 cap 06/03/18 Furosemide [Lasix] 40 mg PO DAILY #30 tab 06/03/18 Ipratropium/Albuterol Sulfate [Duoneb] 3 ml INHALATION Q4H.RT ampul.neb 06/03/18 Prednisone 10 mg PO UD #30 tab 06/03/18 Sodium Chloride 0.65% [[place] Nasal [place]] 2 spray NASAL Q1H PRN PRN spray.btl 06/03/18 Following Prescrptions Were Given to Patient: Diltiazem CD [Cardizem CD] 180 mg PO DAILY #30 cap Furosemide [Lasix] 40 mg PO DAILY #30 tab Prednisone 10 mg PO UD #30 tab Primary Care Physician: Care Physician,No Primary [Primary Care Provider] - Please Follow Up With: Benedicto Zuleta DO When: Friday Please Follow Up With: Med Vazquez DO When: within 2 weeks Disposition: Home Minutes spent on discharge:: 32 Patient Condition:: Stable Medical Necessity - Tobacco Use Smoking Status: Former smoker Tobacco Use: Cigarettes Meaningful Use Info Meaningful Use Diagnoses (Choose all that apply): None applicable Code Visit Inpatient E&M: 95634 Disch Hosp
--- NOTE | 2018-06-06 16:29 | DS.PCM_ITS ---
Discharge Date and Diagnosis Date of Admission: 05/28/18 Date of Discharge: 06/03/18 - Primary Discharge Diagnosis #1 acute hypoxic respiratory failure-secondary to significant chronic obstructive pulmonary disease and pulmonary fibrosis #2 pulmonary fibrosis #3 chronic obstructive pulmonary disease with exacerbation #4 hypertension #5 pulmonary hypertension Hospital Course and Treatment Operations: None Procedures: 2-D Echocardiogram Summary of Care Provided: The patient is a 77 year old F who was seen in the emergency room at [facility] with chief complaint of chest pain and dyspnea, he denies any significant past medical history and does not see a physician regularly. Evaluation in the emergency room included an EKG which showed a sinus tachycardia at 125, no evidence of ischemic changes noted, portable chest x-ray revealed interstitial fibrotic changes, white count was elevated slightly 11.3, sodium was 126, glucose was 205. CT of the chest was obtained and it was abnormal for hilar and mediastinal nodes per the radiologist, there is no evidence of pulmonary embolus, chronic fibrotic changes and COPD was noted. Patient required oxygen to maintain her pulse ox above 90, initially patient's oxygen saturation on room air over 68%. Patient was admitted to PCU for hypoxic respiratory failure, she was maintained on high flow oxygen but no BiPAP. He was given IV corticosteroids and aggressive aerosol treatments, she was seen in consultation by pulmonary medicine, she underwent diuresis and had echocardiogram performed which showed moderate pulmonary hypertension and a preserved ejection fraction. Patient's O2 requirement gradually improved, she did require 6 L to maintain her pulse ox on walking however at the time of discharge. She was placed on medication for hypertension during her hospital stay. Patient was seen and examined on 06/03/18 and felt to be in stable condition for discharge home, she was to follow-up as an outpatient with pulmonary medicine. Discharge Activity: Return to Normal Activity Weight Bearing Status: Full weight bearing Home Medications: Medications to take at Discharge Diltiazem CD [Cardizem CD] 180 mg PO DAILY #30 cap 06/03/18 Furosemide [Lasix] 40 mg PO DAILY #30 tab 06/03/18 Ipratropium/Albuterol Sulfate [Duoneb] 3 ml INHALATION Q4H.RT ampul.neb Prednisone 10 mg PO UD #30 tab 06/03/18 Sodium Chloride 0.65% [[place] Nasal Roberts] 2 spray NASAL Q1H PRN PRN spray.btl 06/03/18 Following Prescrptions Were Given to Patient: Diltiazem CD [Cardizem CD] 180 mg PO DAILY #30 cap Furosemide [Lasix] 40 mg PO DAILY #30 tab Prednisone 10 mg PO UD #30 tab Primary Care Physician: Care Physician,No Primary [Primary Care Provider] - Please Follow Up With: Benedicto Zuleta DO When: Friday Please Follow Up With: Med Vazquez DO When: within 2 weeks Disposition: Home Minutes spent on discharge:: 32 Patient Condition:: Stable Medical Necessity - Tobacco Use Smoking Status: Former smoker Tobacco Use: Cigarettes Meaningful Use Info Meaningful Use Diagnoses (Choose all that apply): None applicable Code Visit Inpatient E&M: 41416 Disch Hosp
== END 2018-06-03 17:19 | disposition home or self-care (01) | DRG 189 ==
LOC: ED 12:36 → MS3 15:17
PROVIDERS: Internal Medicine Critical Care Medicine; Emergency Provider Emergency Medicine; Visit Provider Internal Medicine
DX: J96.01 Acute respiratory failure with hypoxia (principal); J44.1 Chronic obstructive pulmonary disease with (acute) exacerbation; E87.1 Hypo-osmolality and hyponatremia; J84.10 Pulmonary fibrosis, unspecified; I10 Essential (primary) hypertension; I27.20 Pulmonary hypertension, unspecified; Z87.891 Personal history of nicotine dependence; R59.0 Localized enlarged lymph nodes; I16.0 Hypertensive urgency
CPT/HCPCS: 36415; 71045; 71275; 80048; 84484; 85025; 93005; 93306; 94640; 97802; 99284; J7030; Q9967; A4216; J1940

== ENCOUNTER → 2019-10-29 11:03 | Outpatient (CLI) | payer MEDICARE, SELFPAY ==
[2019-08-16 10:53] VITALS: BMI 31.1
[2019-10-29 15:38] LABS: Absolute Lymphocyte Count 1.71 X10^3/uL (0.83-4.51); Absolute Neutrophil Count 6.8 X10^3/uL (2.0-7.7); Basophil# 0.07 X10^3/uL; Basophil% 0.7 % (0-1); Eosinophils% 5.1 % (0-5); Hematocrit 38.7 % (37-47); Hemoglobin 12.4 g/dL (12.0-15.0); Lymphocyte # 1.71 X10^3/ul (4.0); Lymphocyte % 17.6 % (19-41); Mean Corpuscular Hgb 29.5 pg (27.0-32.0); Mean Corpuscular Volume 92.1 fL (81-99); Mean Platelet Vol. 11.8 fl (6.2-12.0); Monocyte# 0.61 X10^3/uL; Monocyte% 6.3 % (0-10); NRBC Flagged by Analyzer 0 % (0-5); Platelet Count 282 K/mm3 (150-450); RBC Distribution Width SD 43.8 fl (35.1-43.9); White Blood Count 9.7 K/mm3 (4.4-11.0)
[2019-10-29 17:36] LABS: ALB/GLOB Ratio 0.7 RATIO (0.9-2.4); AST(SGOT) 20 U/L (15-37); Alanine Aminotransfer ALT/SGPT 21 U/L (13-56); Albumin, Serum 3.5 g/dL (3.2-5.0); Alkaline Phosphatase 91 U/L (45-117); Anion Gap 10 (5-15); BUN 12 mg/dL (7-18); BUN/Creat Ratio 17.6 RATIO (10-20); Calcium,Total 8.8 mg/dL (8.5-10.1); Chloride 102 mmol/L (98-107); Creatinine, Serum 0.68 mg/dL (0.55-1.02); EST Glomerular Filtration Rate 89 mL/min (>60); Est Glom Filt Rate - Afr Amer 107 mL/min (>60); Globulin 5.1 g/dL (2.2-4.2); Glucose 108 mg/dL (74-106); Potassium 3.8 mmol/L (3.5-5.1); Protein, Total 8.6 g/dL (6.4-8.2); Sodium Level 138 mmol/L (136-145)
== END ==
PROVIDERS: Family Provider Family Medicine; PCP Family Medicine; Visit Provider Family Medicine
DX: Z51.81 Encounter for therapeutic drug level monitoring (principal); E87.1 Hypo-osmolality and hyponatremia
CPT/HCPCS: 36415; 80053; 85025

== ENCOUNTER → 2020-10-30 13:38 | Outpatient (CLI) | payer MEDICARE, SELFPAY ==
[2020-02-21 11:13] VITALS: BMI 31.5
[2020-10-30 15:11] LABS: Absolute Lymphocyte Count 1.71 X10^3/uL (0.83-4.51); Absolute Neutrophil Count 5.5 X10^3/uL (2.0-7.7); Basophil# 0.11 X10^3/uL; Basophil% 1.3 % (0-1); Eosinophil# 0.78 X10^3/uL; Eosinophils% 9.2 % (0-5); Hematocrit 40.5 % (37-47); Hemoglobin 12.5 g/dL (12.0-15.0); Lymphocyte # 1.71 X10^3/ul (4.0); Lymphocyte % 20.1 % (19-41); Mean Corp Hgb Conc 30.9 g/dL (32-36); Mean Corpuscular Hgb 28.9 pg (27.0-32.0); Mean Corpuscular Volume 93.8 fL (81-99); Mean Platelet Vol. 11.6 fl (6.2-12.0); Monocyte# 0.42 X10^3/uL; Monocyte% 4.9 % (0-10); NRBC Flagged by Analyzer 0 % (0-5); Neutrophil # 5.46 X10^3/uL (2.7-7.7); Neutrophil % 64.3 % (47-70); Platelet Count 307 K/mm3 (150-450); RBC Distribution Width CV 12.6 % (11.6-14.6); RBC Distribution Width SD 43.6 fl (35.1-43.9); Red Blood Count 4.32 M/mm3 (4.2-5.4); White Blood Count 8.5 K/mm3 (4.4-11.0)
[2020-10-30 16:02] LABS: ALB/GLOB Ratio 0.7 RATIO (0.9-2.4); AST(SGOT) 17 U/L (15-37); Alanine Aminotransfer ALT/SGPT 17 U/L (13-56); Albumin, Serum 3.5 g/dL (3.2-5.0); Alkaline Phosphatase 98 U/L (45-117); Anion Gap 6 (5-15); BUN 14 mg/dL (7-18); BUN/Creat Ratio 16.1 RATIO (10-20); Calcium,Total 8.9 mg/dL (8.5-10.1); Chloride 101 mmol/L (98-107); Creatinine, Serum 0.87 mg/dL (0.55-1.02); EST Glomerular Filtration Rate 67 mL/min (>60); Est Glom Filt Rate - Afr Amer 81 mL/min (>60); Globulin 5.3 g/dL (2.2-4.2); Glucose 137 mg/dL (74-106); Potassium 4.2 mmol/L (3.5-5.1); Protein, Total 8.8 g/dL (6.4-8.2); Sodium Level 135 mmol/L (136-145)
== END ==
PROVIDERS: PCP Family Medicine; Visit Provider Family Medicine
DX: I10 Essential (primary) hypertension (principal); Z51.81 Encounter for therapeutic drug level monitoring; R77.1 Abnormality of globulin
CPT/HCPCS: 36415; 80053; 85025

== ENCOUNTER 2022-01-03 17:08 | Inpatient (IN) | payer MEDICARE, SELFPAY ==
[2022-01-03] VITALS (8 sets, daily range): BP systolic 114–143; BP diastolic 79–85; PULSE 80–94; RESP 18–22; TEMP 36.4–37.2; O2SAT 79–97; BMI 34.4; BMI 30.8
--- NOTE | 2022-01-03 17:23 | EKG12_ITS ---
Test Reason : Blood Pressure : / mmHG Vent. Rate : 085 BPM Atrial Rate : 085 BPM P-R Int : 164 ms QRS Dur : 110 ms QT Int : 366 ms P-R-T Axes : 049 098 -05 degrees QTc Int : 435 ms Sinus rhythm with Premature supraventricular complexes T wave abnormality, consider inferior ischemia T wave abnormality, consider anterior ischemia Abnormal ECG Confirmed by CHIDI ROOT, EZEQUIEL ([id number]), assistant film editor JAKE HART ([id number]) on 01/04/2022 9:17:42 AM Referred By: KATIE Confirmed By:EZEQUIEL MURILLO MD
--- NOTE | 2022-01-03 18:12 | RAD_ITS ---
STUDY: X-RAY CHEST REASON FOR EXAM: Female, 81 years old. sob TECHNIQUE: Frontal view COMPARISON: 05/28/2018 FINDINGS: The lungs are expanded. Interstitial densities and possible patchy infiltrates bilaterally. Normal size heart. Normal mediastinum and abel. Normal visualized pulmonary arteries. Calcified aortic arch and descending thoracic aorta. Normal visualized thoracic spine. Normal visualized ribs, clavicles, and shoulders. There is no demonstrated abnormality of the visualized soft tissue structures of the upper abdomen. RAD/Chest 1 View (Portable) IMPRESSION: Interstitial densities and possible patchy infiltrates bilaterally. Electronically Signed: Dilip Zeng DO at 18:57 EST Reading Location ID and State: [facility] / [place] Tel [phone], Service support ,
[2022-01-03 18:18] LABS: ALB/GLOB Ratio 0.6 RATIO (0.9-2.4); AST(SGOT) 23 U/L (15-37); Alanine Aminotransfer ALT/SGPT 19 U/L (13-56); Albumin, Serum 3.1 g/dL (3.2-5.0); Alkaline Phosphatase 112 U/L (45-117); Anion Gap 5 (5-15); BUN 16 mg/dL (7-18); BUN/Creat Ratio 21.2 RATIO (10-20); Calcium,Total 8.8 mg/dL (8.5-10.1); Chloride 104 mmol/L (98-107); Creatinine, Serum 0.76 mg/dL (0.55-1.02); EST Glomerular Filtration Rate 78 mL/min (>60); Est Glom Filt Rate - Afr Amer 94 mL/min (>60); Globulin 5.4 g/dL (2.2-4.2); Glucose 98 mg/dL (74-106); Potassium 3.5 mmol/L (3.5-5.1); Protein, Total 8.5 g/dL (6.4-8.2); Sodium Level 139 mmol/L (136-145); Troponin-I HS 37 pg/mL (3.0-54.0)
[2022-01-03 18:54] LABS: Absolute Lymphocyte Count 1.36 X10^3/uL (0.83-4.51); Absolute Neutrophil Count 5.9 X10^3/uL (2.0-7.7); Basophil# 0.05 X10^3/uL; Basophil% 0.6 % (0-1); Eosinophils% 2.5 % (0-5); Hematocrit 39.5 % (37-47); Hemoglobin 12.9 g/dL (12.0-15.0); Lymphocyte # 1.36 X10^3/ul (0.83-4.51); Lymphocyte % 16.8 % (19-41); Mean Corp Hgb Conc 32.7 g/dL (32-36); Mean Corpuscular Hgb 29.9 pg (27.0-32.0); Mean Corpuscular Volume 91.6 fL (81-99); Mean Platelet Vol. 10.8 fl (6.2-12.0); Monocyte# 0.58 X10^3/uL; Monocyte% 7.2 % (0-10); NRBC Flagged by Analyzer 0 % (0-5); Neutrophil # 5.87 X10^3/uL (2.7-7.7); Neutrophil % 72.4 % (47-70); Platelet Count 285 K/mm3 (150-450); RBC Distribution Width CV 15.6 % (11.6-14.6); RBC Distribution Width SD 52.3 fl (35.1-43.9); Red Blood Count 4.31 M/mm3 (4.2-5.4); White Blood Count 8.1 K/mm3 (4.4-11.0)
[2022-01-03 19:03] LABS: International Normalized Ratio 1.5; Prothrombin Time (Protime)PT. 17.3 SECONDS (11.7-14.9)
[2022-01-03 19:05] LABS: Partial Thromboplast Time 33.9 Seconds (24.1-36.2)
--- NOTE | 2022-01-03 19:10 | ED.VIS.DYS ---
HPI History of Present Illness Chief Complaint: Shortness of Breath Informant: patient Narrative Narrative: Patient is an 81-year-old female with history of chronic hypoxic respiratory failure on 9 L of oxygen at baseline, pulmonary fibrosis and COPD presenting with worsening shortness of breath. Patient states she has had increase shortness of breath over the past few weeks and has a cough especially she lays flat. She has chronic edema of her legs which she thinks is actually improving. She states she said multiple family members that have been sick and she thinks she might of had whenever they got. She denies any fever. She wears 9 L of oxygen at home but lately has been having bloody noses. It is making it harder for her to wear her home oxygen. When EMS arrived patient was 79% on her nasal cannula. She came up to 94% on nonrebreather. [facility] Medical History (Updated 01/03/22 @ 20:[address] Natasha Argueta DO) Acute respiratory failure with hypoxia Chronic hypoxemic respiratory failure COPD (chronic obstructive pulmonary disease) COPD with acute exacerbation Former smoker Hypertension Hyponatremia On home oxygen therapy Pulmonary fibrosis Home Medications metoprolol succinate 50 mg tablet,extended release 24 hr 50 mg PO DINNER 06/29/18 [History Last Taken 01/02/22] ipratropium 0.5 mg-albuterol 3 mg (2.5 mg base)/3 mL nebulization soln 3 ml INHALATION Q4H.RT #180 vial 08/23/21 [Rx Last Taken Unknown] furosemide 40 mg PO DAILY 01/03/22 [History Last Taken 01/03/22] Allergy/AdvReac Type Severity Reaction Status Date / Time diltiazem Allergy Hives Verified 01/03/22 17:15 Family History Mother Pulmonary fibrosis Aunt Pulmonary fibrosis Father Emphysema of lung Surgical History cyst from tail bone removed History of removal of ovarian cyst Social History Smoking Status: Former smoker quit date: 11/03/06 pack-years: 60 alcohol intake: never substance use type: does not use ROS ROS ED Constitutional Constitutional ED: Denies chills or fever(s) Eyes Eyes: Denies change in vision ENT ENT ED: Reports other Details: Epistaxis ; Denies ear pain, rhinorrhea or sore throat Cardiovascular Cardiovascular: Reports orthopnea; Denies chest pain Respiratory/Chest Respiratory/Chest: Reports cough, dyspnea, dyspnea on exertion and orthopnea; Denies sputum Gastrointestinal Gastrointestinal: Denies abdominal pain, diarrhea, nausea or vomiting Genitourinary Genitourinary ED: Denies dysuria or hematuria Musculoskeletal Musculoskeletal: Denies arthralgias or myalgias Integumentary Denies rash Neurologic Neurologic: Denies headache(s) or weakness Psychiatric Psychiatric: Denies depression EXAM Physical Exam Const Vital Signs: 01/03/22 17:09 01/03/22 17:14 01/03/22 17:24 Temperature 98.3 F 97.8 F Temperature Source Temporal Temporal Pulse Rate 94 94 Respiratory Rate 22 H 20 H Respiratory Effort Normal Blood Pressure 140/79 H 140/79 H Blood Pressure Mean 99 99 Pulse Ox 90 95 Oxygen Delivery Method Non-Rebreather Non-Rebreather Non-Rebreather Oxygen Flow Rate (L/min) 10 10 10 01/03/22 18:51 01/03/22 19:42 Temperature 97.6 F L Temperature Source Temporal Pulse Rate 86 86 Respiratory Rate 18 18 Respiratory Effort Blood Pressure 133/85 H 114/81 H Blood Pressure Mean 101 92 Pulse Ox 79 93 Oxygen Delivery Method High Flow Non-Rebreather Oxygen Flow Rate (L/min) 10 15 Positive well nourished and well developed General Appearance ED: well developed HEENT Reports TM's clear and moist mucous membranes HEENT Narrative: Dried blood in the nares, right greater than left. Normal oropharynx atraumatic Tympanic Membrane ED: Yes TM's clear Eyes PERRL and EOMs intact bilaterally Neck supple Neck Narrative: Positive JVD Resp Resp Narrative: Mild scattered wheeze. Diffuse crackles present Auscultation: diminished lung sounds GI non-tender and non-distended Palpation: soft Back/Spine normal to inspection Extremity normal to inspection Extremity Narrative: 1+ bilateral pedal edema General Extremety ED: Yes edema General Extremity: edema Neuro oriented x3 Sensorium / Orientation: alert Motor Exam: general weakness Psych mental status grossly normal Skin Lesions: no lesions Rashes: no rashes MDM MDM MDM Narrative Medical decision making narrative: Patient is an 81-year-old female presenting with worsening shortness of breath. She having a hard time breathing for the past 2 weeks and its been exacerbated by having intermittent epistaxis caused it to be difficult to use her nasal canula. Patient is hypoxic on her NC and is requiring a nonrebreather. No active epistaxis. She is placed on humidified oxygen as I do think that is likely contributed to her epistaxis. Patient has diffuse crackles and some peripheral edema. BNP is elevated. Suspect patient has likely a mixture of her pulmonary fibrosis as well as fluid overload. Patient is given Solu-Medrol as well as IV Lasix. ABG obtained while patient is on nonrebreather is grossly normal. I do not think she requires emergent BiPAP at this time. She will be admitted for further monitoring of this. X-ray does show interstitial densities with possible patchy infiltrates bilaterally. This is suddenly change compared to prior chest x-ray. I suspect this is more to do with fluid and not acute infection. Especially as patient does not have any change in her cough, fever, leukocytosis or other findings consistent with an acute respiratory infection. Covid and influenza swabs are negative. Patient will be admitted for further respiratory management. She is agreeable this plan of care. Lab Data Attestation: I reviewed the patient's lab results. Labs: Laboratory Results - last 24 hr 01/03/22 01/03/22 01/03/22 17:40 18:46 18:46 WBC 8.1 RBC 4.31 Hgb 12.9 Hct 39.5 MCV 91.6 MCH 29.9 MCHC 32.7 RDW Std Deviation 52.3 H RDW Coeff of [place] 15.6 H Plt Count 285 MPV 10.8 Immature Gran % (Auto) 0.500 Neut % (Auto) 72.4 H Lymph % (Auto) 16.8 L [place] % (Auto) 7.2 Eos % (Auto) 2.5 Baso % (Auto) 0.6 Absolute Neuts (auto) 5.9 Absolute Lymphs (auto) 1.36 Nucleated RBC % 0 PT 17.3 H INR 1.5 APTT 33.9 Sodium 139 Potassium 3.5 Chloride 104 Carbon Dioxide 30.0 Anion Gap 5 BUN 16 Creatinine 0.76 Estim Creat Clear Calc 34.90 Est GFR (MDRD) Af Amer 94 Est GFR (MDRD) Non-Af 78 BUN/Creatinine Ratio 21.2 H Glucose 98 Calcium 8.8 Total Bilirubin 1.00 AST 23 ALT 19 Alkaline Phosphatase 112 Troponin I High Sens 37 B-Natriuretic Peptide Total Protein 8.5 H Albumin 3.1 L Globulin 5.4 H Albumin/Globulin Ratio 0.6 L 01/03/22 18:46 WBC RBC Hgb Hct MCV MCH MCHC RDW Std Deviation RDW Coeff of [place] Plt Count MPV Immature Gran % (Auto) Neut % (Auto) Lymph % (Auto) [place] % (Auto) Eos % (Auto) Baso % (Auto) Absolute Neuts (auto) Absolute Lymphs (auto) Nucleated RBC % PT INR APTT Sodium Potassium Chloride Carbon Dioxide Anion Gap BUN Creatinine Estim Creat Clear Calc Est GFR (MDRD) Af Amer Est GFR (MDRD) Non-Af BUN/Creatinine Ratio Glucose Calcium Total Bilirubin AST ALT Alkaline Phosphatase Troponin I High Sens B-Natriuretic Peptide 1301.8 H Total Protein Albumin Globulin Albumin/Globulin Ratio Radiography Chest X-Ray - ED: 1 View, Read by ED Physician, Read by Radiologist, Chronic Changes, Right Infiltrate and Left Infiltrate Diagnostic Testing: Clinical Impression(s) from Imaging Studies Chest X-Ray 01/03/22 18:12 IMPRESSION: Interstitial densities and possible patchy infiltrates bilaterally. Electronically Signed: Dilip Zeng DO at 18:57 EST Reading Location ID and State: [facility] / [place] Tel [phone], Service support , Rhythm Strip Rhythm Strip: Sinus Rhythm Rate: 85 Ectopy: None EKG Initial EKG: Attestation: I personally reviewed and interpreted this EKG as follows: Interpretation: Sinus Rhythm Comments: Notes normal sinus rhythm at a rate of 85 Right axis deviation Normal intervals T wave inversions in V1 through V4 as well as 3 and aVF Compared to prior EKG on 05/30/2018 patient is no longer tachycardic and has new T wave inversions in V3 and V4 Prior EKG tracings: available for review Prior: Changed Discharge Plan Triage Chief Complaint: Shortness of Breath ED Provider: Natasha Argueta Dx/Rx/DC Orders Clinical Impression: Acute respiratory failure with hypoxia, Pulmonary fibrosis, Abnormal ECG Primary Care Provider: Benedicto Zuleta Disposition Disposition: Acute Care [facility]
[2022-01-03 19:14] LABS: BNP,B-Type NATRIURETIC PEPTIDE 1301.8 pg/mL (0-100)
[2022-01-03] MEDS: Furosemide 40 MG/4 ML Vial IV (19:44)
[2022-01-03] MEDS: MethylPREDNISolone 125 MG/2 ML Vial IV (19:44)
--- NOTE | 2022-01-03 20:20 | CASEMGMT ---
TED BRAND Assessment: TED BRADN to room to meet with patient for initial transition planning/care coordination assessment. TED BRAND introduced self and role at [facility]. Patient voices understanding and consents to assessment at this time. Patient's daughter Emilie Reeder present at bedside and active in transition planning. Patient is alert and oriented and answers all questions appropriately, reclined on ER cart with NRB mask in place. Care providers, pharmacy, and demographics verified/updated at this time. Admitting Dx: acute on chronic hypoxic respiratory failure PCP: Benedicto Zuleta Specialists: [facility] Preferred [facility]acy: [facility] Insurance: [email or web address] [facility] Prescription Benefit: yes Living Will/HPOA: Patient denies having a living will or HPOA. LNOK: Daughter Emilie Reeder and son Jordan Reeder Living Arrangements: Patient lives alone in single story duplex next to daughter with no steps to enter the home. Patient states independent with ADLs but admits that she fatigues easily related to breathing difficulties. Daughter does patient's grocery shopping and cooking. Smoking/ETOH: Former smoker (quit February 2007), denies ETOH use Transportation: Patient does not drive. Patient's daughter and sister drive patient and patient denies transportation concerns. DME/HHC/SNF: Patient has walker, raised toilet seat, walk-in shower with seat, nebulizer and home oxygen at 9 LPM continuous through [employer]. Patient denies previous HHC or SNF stays. Patient has no concerns with going home at time of discharge. TED BRAND spoke with patient about HHC, patient will consider. Patient requests Palliative care consult. Order for referral placed per Dr. Menendez and referral sent. CM to follow for any discharge planning/needs. Patient and daughter voice no concerns/needs at this time. Advised patient and daughter to ask for CM if any questions/concerns/needs arise. Voices understanding. Plan: home, palliative consult, will consider HHC
[2022-01-03 20:26] LABS: Allen Test Negative; Base Excess 4 mmol/L (-2 to +2); Bicarbonate 27.9 mmol/L (22-26); Blood Gas Specimen Type ART; FI02 100; O2 Delivery Device NRB; PO2 80 mmHG (75-100); SITE R Brach; SO2 96 % (95-99); Total Carbon Dioxide 29 mmol/L; pCO2 42.6 mmHg (35-45); pH 7.42 (7.35-7.45)
--- NOTE | 2022-01-03 20:56 | ECHOD_ITS ---
Reason For Study: PHTN Procedure This was a 2D Doppler, Color Flow transthoracic echocardiogram. Exam performed portable in patient room. Left Ventricle Normal LV size. D shaped septum in systole and diastole. Left ventricular systolic function is normal. The estimated ejection fraction is 55 %. Stage 1 diastolic dysfunction. No regional wall motion abnormalities noted. Right Ventricle Moderately dilated right ventricle. Mild to moderate global right ventricular systolic dysfunction. Atria Normal left atrium. The right atrium is moderately enlarged. Mitral Valve There is mild to moderate mitral annular calcification. Mild (1+) mitral valve insufficiency. Tricuspid Valve Normal tricuspid valve. Moderately severe (3+) tricuspid valve insufficiency. Pulmonary artery systolic pressure is 78 mmHg. Aortic Valve Trisinus/trileaflet aortic valve. Mild focal aortic valve calcification. Pulmonic Valve Normal pulmonic valve. Trivial pulmonic valve insufficiency. Great Vessels Normal aortic root. The pulmonary artery is normal size. Normal inferior vena cava. Pericardium/Pleural No pericardial effusion. MMode/2D Measurements & Calculations LVIDd: 3.6 cm IVSd: 0.64 cm Ao root diam: 3.0 cm LVIDs: 1.1 cm LVPWd: 0.70 cm RVDd: 4.7 cm FS: 69.3 % LAV(MOD-bp): 38.0 ml LA A4 area: 14.5 cm2 LA dimension(2D): 3.9 cm LAV(MOD-bp) Indexed: 21.1 ml/m2 LAV(MOD-sp2): 41.8 ml LAV(MOD-sp4): 34.9 ml RA A4 area: 25.6 cm2 Doppler Measurements & Calculations MV E max wes: 127.6 cm/sec Lat Peak E' Wes: 10.6 cm/sec Med Peak E' Wes: 5.7 cm/sec MV A max wes: 135.5 cm/sec E/E' lat: 12.0 E/E' med: 22.2 MV E/A: 0.94 Ao V2 max: 175.3 cm/sec LV V1 max: 99.3 cm/sec PA V2 max: 111.7 cm/sec Ao max P.3 mmHg LV V1 max P.9 mmHg Ao V2 mean: 124.3 cm/sec Ao mean P.8 mmHg Ao V2 VTI: 35.4 cm TR max wes: 419.3 cm/sec TR max P.3 mmHg ECHO/Echo Complete Interpretation Summary Normal LV size. Left ventricular systolic function is normal. The estimated ejection fraction is 55 %. Stage 1 diastolic dysfunction. D shaped septum in systole and diastole. The right atrium is moderately enlarged. Mild (1+) mitral valve insufficiency. Pulmonary artery systolic pressure is 78 mmHg. Ordering Physician: Ernst Menendez Referring Physician: Benedicto Zuleta Performed By: Jojo Vazquez, AUDELIA, RVT
--- NOTE | 2022-01-03 20:56 | PCM.HP.STD ---
HPI - General General Date of Admission: 01/03/22 HPI Narrative MANUELITO FRIAS, is a 81 F who presents to the hospital with shortness of breath. She has a history of pulmonary fibrosis as well as pulmonary hypertension. She follows with pulmonology as an outpatient and in October 2021 she was on about 6 L of oxygen this has now been increased to 9 L of oxygen. She is also noticed some increase in her swelling of her lower extremities over the last several days and in the ER on admission her BNP was 1301.8, echo from 2018 showed an RVSP of 54 mmHg. She has noticed that she has been having significant shortness of breath over the last several weeks and has had issues with lying flat. There is also some concern for possible viral component to this, Covid was negative however she states that she has been interacting with multiple family members who have had viral illnesses recently prior to arrival to the ER she was 79% on her home O2. [facility] Medical History (Updated 01/03/22 @ 21:[address] Ernst Menendez MD) Acute respiratory failure with hypoxia Chronic hypoxemic respiratory failure COPD (chronic obstructive pulmonary disease) COPD with acute exacerbation Former smoker Hypertension Hyponatremia On home oxygen therapy Pulmonary fibrosis Home Medications metoprolol succinate 50 mg tablet,extended release 24 hr 50 mg PO DINNER 06/29/18 [History Last Taken 01/02/22] ipratropium 0.5 mg-albuterol 3 mg (2.5 mg base)/3 mL nebulization soln 3 ml INHALATION Q4H.RT #180 vial 08/23/21 [Rx Last Taken Unknown] furosemide 40 mg PO DAILY 01/03/22 [History Last Taken 01/03/22] Allergy/AdvReac Type Severity Reaction Status Date / Time diltiazem Allergy Hives Verified 01/03/22 17:15 Family History Mother Pulmonary fibrosis Aunt Pulmonary fibrosis Father Emphysema of lung Surgical History cyst from tail bone removed History of removal of ovarian cyst Social History Smoking Status: Former smoker quit date: 11/03/06 pack-years: 60 alcohol intake: never substance use type: does not use ROS Constitutional Constitutional: Denies chills, fatigue, fever(s) or malaise Eyes Eyes: Denies blurry vision ENT HEENT: Denies headache(s) or nasal discharge Cardiovascular Cardiovascular: Reports edema and orthopnea; Denies chest pain, dyspnea on exertion or syncope Respiratory/Chest Respiratory/Chest: Reports cough and shortness of breath at rest; Denies shortness of breath with exertion Gastrointestinal Gastrointestinal: Denies constipation, diarrhea, nausea or vomiting Genitourinary Genitourinary: Denies dysuria Neurologic Neurologic: Denies focal weakness, numbness or tremor(s) Psychiatric Psychiatric: Denies anxiety or depression Vital Signs Vital Signs Vital Signs: 01/03/22 17:09 01/03/22 17:14 01/03/22 17:24 Temperature 98.3 F 97.8 F Temperature Source Temporal Temporal Pulse Rate 94 94 Respiratory Rate 22 H 20 H Respiratory Effort Normal Blood Pressure 140/79 H 140/79 H Blood Pressure Mean 99 99 Pulse Ox 90 95 Oxygen Delivery Method Non-Rebreather Non-Rebreather Non-Rebreather Oxygen Flow Rate (L/min) 10 10 10 01/03/22 18:51 01/03/22 19:42 Temperature 97.6 F L Temperature Source Temporal Pulse Rate 86 86 Respiratory Rate 18 18 Respiratory Effort Blood Pressure 133/85 H 114/81 H Blood Pressure Mean 101 92 Pulse Ox 79 93 Oxygen Delivery Method High Flow Non-Rebreather Oxygen Flow Rate (L/min) 10 15 Weight Weight: 188 lb 0.869 oz Body Mass Index (BMI) 34.4 Physical Exam Const alert, oriented x3 and no apparent distress General Appearance: cooperative HEENT normocephalic Mouth: dry mucous membranes Eyes PERRL, EOMs intact bilaterally and conjunctivae normal Neck supple and no JVD Resp normal respiratory effort, no retractions, no use of accessory muscles and clear to auscultation bilaterally Auscultation: wheezes and diminished lung sounds; Negative for crackles, rales or rhonchi Cardio regular rate, regular rhythm, S1 normal heart sound, S2 normal heart sound and no murmurs GI soft to palpation, non-tender and non-distended; Negative for hepatosplenomegaly Extremity General Extremity: edema bilateral lower extremity Details: moderate; Negative for clubbing or cyanosis Skin no rashes or lesions noted Neuro no focal motor deficits and no sensory deficits noted Psych affect normal Appearance: appropriate Results Lab / Micro Data Result Diagrams: 01/03/22 18:46 01/03/22 17:40 Labs: Laboratory Results - last 24 hr 01/03/22 17:40: Sodium 139, Potassium 3.5, Chloride 104, Carbon Dioxide 30.0, Anion Gap 5, BUN 16, Creatinine 0.76, Estim Creat Clear Calc 34.90, Est GFR (MDRD) Af Amer 94, Est GFR (MDRD) Non-Af 78, BUN/Creatinine Ratio 21.2 H, Glucose 98, Calcium 8.8, Total Bilirubin 1.00, AST 23, ALT 19, Alkaline Phosphatase 112, Troponin I High Sens 37, Total Protein 8.5 H, Albumin 3.1 L, Globulin 5.4 H, Albumin/Globulin Ratio 0.6 L 01/03/22 18:46: WBC 8.1, RBC 4.31, Hgb 12.9, Hct 39.5, MCV 91.6, MCH 29.9, MCHC 32.7, RDW Std Deviation 52.3 H, RDW Coeff of Mercedez 15.6 H, Plt Count 285, MPV 10.8, Immature Gran % (Auto) 0.500, Neut % (Auto) 72.4 H, Lymph % (Auto) 16.8 L, [place] % (Auto) 7.2, Eos % (Auto) 2.5, Baso % (Auto) 0.6, Absolute Neuts (auto) 5.9, Absolute Lymphs (auto) 1.36, Nucleated RBC % 0 01/03/22 18:46: PT 17.3 H, INR 1.5, APTT 33.9 01/03/22 18:46: B-Natriuretic Peptide 1301.8 H Micro: Microbiology 01/03/22 18:58 Nasal Secretion SARS-CoV-2 Antigen (Rapid) - Final 01/03/22 18:04 Mucosa - Nasopharyngeal Influenza Types A,B Direct FA (JAIME) - Final ABG Data ABG results: ABG 01/03/22 20:21 Specimen Type ART Sample Site R Brach pH 7.42 Bicarbonate Actual 27.9 H Total CO2 29 Base Excess 4 H O2 Saturation 96 O2 % 100 ABG pCO2 42.6 ABG pO2 80 Ignacio Test Negative O2 Delivery Device NRB Rhythm Strip Rhythm Strip: Sinus Rhythm Rate: 85 Ectopy: None Radiology Impression Chest X-Ray 01/03/22 18:12 IMPRESSION: Interstitial densities and possible patchy infiltrates bilaterally. Electronically Signed: Dilipdarren Zeng DO at 18:57 EST , Assessment & Plan Assessment/Plan (1) Acute respiratory failure with hypoxia: (2) Chronic hypoxemic respiratory failure: (3) Pulmonary fibrosis: (4) Pulmonary hypertension: PLAN: 1. Acute on chronic hypoxic respiratory failure secondary to pulmonary fibrosis and pulmonary hypertension/COPD ?She does follow-up with pulmonology as an outpatient is normally is on 6 L of nasal cannula however has gone up to 9 L nasal cannula for the last several weeks. ?BNP on admission is 1301, with significant lower extremity edema ?She was 79% on her 9 L at home and is now on a nonrebreather ?ABG shows normal pH with a normal CO2 but her PaO2 is low at 80% while on the nonrebreather ?We will provide her with twice daily IV Lasix and monitor her renal function ?We will consult palliative care and had a 20-minute advance care planning discussion with her and her daughter about the possibility of hospice down the line given the amount of oxygen she is requiring. ?If there is no significant improvement in the next several days may benefit from pulmonology evaluation while here in the hospital ?We will obtain an echo for characterization of her pulmonary hypertension as her last one was in 2018, in 2018 her EF was 75% with an RVSP of 54 mmHg ?Continue with her home metoprolol as well as her home inhalers for her COPD DVT: Lovenox Charges/Coding Visit Charges Inpatient E&M: 06935 Init Hosp L2
[2022-01-04] VITALS (17 sets, daily range): BP systolic 95–120; BP diastolic 53–78; PULSE 84–118; RESP 16–89; TEMP 36.4–37.6; O2SAT 85–96
[2022-01-04 06:31] LABS: Absolute Lymphocyte Count 0.63 X10^3/uL (0.83-4.51); Absolute Neutrophil Count 4.7 X10^3/uL (2.0-7.7); Basophil# 0.02 X10^3/uL; Basophil% 0.4 % (0-1); Eosinophil# 0.01 X10^3/uL; Eosinophils% 0.2 % (0-5); Hematocrit 38.4 % (37-47); Hemoglobin 12.5 g/dL (12.0-15.0); Lymphocyte # 0.63 X10^3/ul (0.83-4.51); Lymphocyte % 11.5 % (19-41); Mean Corp Hgb Conc 32.6 g/dL (32-36); Mean Corpuscular Hgb 29.8 pg (27.0-32.0); Mean Corpuscular Volume 91.6 fL (81-99); Mean Platelet Vol. 11.4 fl (6.2-12.0); Monocyte# 0.07 X10^3/uL; Monocyte% 1.3 % (0-10); NRBC Flagged by Analyzer 0 % (0-5); Neutrophil # 4.72 X10^3/uL (2.7-7.7); Neutrophil % 86.2 % (47-70); POSITIVE MORPHOLOGY YES; Platelet Count 253 K/mm3 (150-450); RBC Distribution Width CV 15.4 % (11.6-14.6); RBC Distribution Width SD 51.6 fl (35.1-43.9); Red Blood Count 4.19 M/mm3 (4.2-5.4); White Blood Count 5.5 K/mm3 (4.4-11.0)
[2022-01-04 06:35] LABS: Differential Indicated SCAN CRITERIA MET
[2022-01-04 06:47] LABS: Differential Comment SCANNED
[2022-01-04 07:00] LABS: Anion Gap 6 (5-15); BUN 14 mg/dL (7-18); BUN/Creat Ratio 26.4 RATIO (10-20); Calcium,Total 8.6 mg/dL (8.5-10.1); Chloride 103 mmol/L (98-107); Creatinine, Serum 0.53 mg/dL (0.55-1.02); EST Glomerular Filtration Rate 118 mL/min (>60); Est Glom Filt Rate - Afr Amer 142 mL/min (>60); Glucose 152 mg/dL (74-106); Potassium 3.8 mmol/L (3.5-5.1); Sodium Level 138 mmol/L (136-145)
[2022-01-04] MEDS: Ipratropium/Albuterol Sulfate 3 ML AMPUL.NEB INHALATION ×4 (07:01→19:21)
[2022-01-04] MEDS: Enoxaparin 40 MG/0.4 ML Syringe SC (10:17)
[2022-01-04] MEDS: Furosemide 40 MG/4 ML Vial IV ×2 (10:17→22:23)
[2022-01-04] MEDS: 0.9% Saline Lock 10 ML Syringe IV ×3 (10:17→22:23)
--- NOTE | 2022-01-04 14:32 | CON.PCM.PA_ITS ---
Assessment & Plan Assessment/Plan (1) Shortness of breath: (2) Chronic hypoxemic respiratory failure: (3) COPD with acute exacerbation: (4) Acute respiratory failure with hypoxia: (5) Pulmonary fibrosis: (6) Pulmonary hypertension: PLAN: 81-year-old female with pulmonary fibrosis, pulmonary hypertension, chronic hypoxemic respiratory failure recently requiring 9 L of oxygen supplementation, seen today for palliative care consultation for symptom management of dyspnea and for supportive care as an outpatient. 1. Dyspnea: Being treated for an acute exacerbation COPD. Currently on airVo 50/70%. She is being diuresed. Patient may be candidate for hospice in the near future if she continues to deteriorate. She would also qualify for opioids for symptom management of dyspnea, pending formal evaluation with risk stratification. We will continue to follow patient 2. COPD/hypoxemic respiratory failure/pulmonary fibrosis/pulmonary hypertension/former smoker/hyponatremia/chronic home oxygen: Complicates overall care, management, recovery, and prognosis. Thank you for the opportunity to participate in this patient's care, please do not hesitate to contact [facility] with any further questions or concerns, direct line is [phone]. Contact information left with the patient and her daughter. We did discuss hospice and palliative services and they would like a liaison visit, which we are setting up to hopefully happen within the next 24 to 48 hours. If patient deteriorates and needs more urgent services, please contact hospice. Greater than 50% of F2F visit dedicated to education and counseling of palliative care services, medications, comorbid conditions and potential assi stance with management, care coordination, and plan of care moving forward. We discussed goals of care and severity of disease processes. Start time: 1432 End time: 1532 HPI Consult Data Date of Consult: 01/04/22 HPI Narrative HPI Narrative: MANUELITO FRIAS, is a 81 F who presented to [facility] 01/03/2022 with complaints of progressive shortness of breath and coughing with lying flat. She has a history of chronic hypoxemic respiratory failure, pulmonary fibrosis, pulmonary hypertension, COPD, home oxygen requirement of 9 L at baseline. There was concern for exposure to sick family members. She had not been wearing her oxygen continuously due to epistaxis. Squad got her oxygen level up in the 90s with a nonrebreather, otherwise she was 79% on her nasal cannula. Work-up in the ED revealed elevated BNP. Covid rapid was negative. Chest x-ray showed interstitial densities and possible patchy infiltrates bilaterally. Patient given Solu-Medrol in the ED. She was admitted for further evaluation and management. Patient was given IV diuresis. Hospitalist had advanced care planning discussion with patient and daughter. Patient is currently DNR CCA with no intubation. It appears her last echocardiogram was in 2018, at which time RVSP was estimated at 54 mmHg. Patient follows closely with pulmonary medicine of [place], last seen 11/23/2021 by Estephanie Lopez NP. It appears that she is often volume overloaded. She has increased exertional dyspnea and desaturations. Patient noted to have a hard time following low-salt diet. She does not monitor her weights on a routine basis. She is getting IV Lasix while here in the hospital 40 mg twice daily. She is on very few medications, including Toprol-XL, DuoNeb's, and DVT prophylaxis with Lovenox. Patient does have as needed melatonin, Zofran, Tylenol. Patient typically lives alone in single-story duplex next to her daughter. She is typically independent with ADLs but has very poor activity tolerance. She quit smoking in 2006. Her daughter drives her to appointments. She does have DME in the home including a walker, raised toilet seat, walk-in shower with seat, nebulizer, and home oxygen through [employer]. She uses [facility] for pharmacy. It does not appear she has a corporate fitness program coordinator. Patient reports very poor quality of life. She has poor activity tolerance and is unable to perform ADLs or do enjoyable things that she will instead. She gets dyspneic with minimal exertion, which has progressed. Her mobility has been decreasing. Weights are fluctuating but she has intermittent problems with fluid retention. No N/V/D. Constipation which is controlled with medications. No dizziness or syncope. She still feels pretty short of breath here in the hospital, not tolerating air Vo as it is drying out her nose. She keeps taking it out. She has some lower extremity edema. She is not in any significant pain. Her daughter is present during my examination. We did discuss hospice and palliative services, patient is leaning towards hospice as that aligns with her goals more accurately. States that her daughter is on board but her son is not. She would like a liaison visit to discuss this further. I have contacted our hospice team. [facility] Medical History Acute respiratory failure with hypoxia Chronic hypoxemic respiratory failure COPD (chronic obstructive pulmonary disease) COPD with acute exacerbation Former smoker Hypertension Hyponatremia On home oxygen therapy Pulmonary fibrosis Home Medications metoprolol succinate 50 mg tablet,extended release 24 hr 50 mg PO DINNER 06/29/18 [History Last Taken 01/02/22] ipratropium 0.5 mg-albuterol 3 mg (2.5 mg base)/3 mL nebulization soln 3 ml INHALATION Q4H.RT #180 vial 08/23/21 [Rx Last Taken Unknown] furosemide 40 mg PO DAILY 01/03/22 [History Last Taken 01/03/22] Allergy/AdvReac Type Severity Reaction Status Date / Time diltiazem Allergy Hives Verified 01/03/22 17:15 Family History Mother Pulmonary fibrosis Aunt Pulmonary fibrosis Father Emphysema of lung Surgical History cyst from tail bone removed History of removal of ovarian cyst Social History Smoking Status: Former smoker quit date: 11/03/06 pack-years: 60 alcohol intake: never substance use type: does not use ROS ROS Narrative Review of systems otherwise negative from a constitutional, HEENT, respiratory, cardiovascular, GI, genitourinary, musculoskeletal, skin, neurologic, psychiatric and hematologic system unless stated above. Physical Exam Const alert and oriented x3 Constitutional Narrative: Labored breathing but able to converse in broken sentences General Appearance: ill appearing Nutritional Appearance: obese HEENT HEENT Narrative: Nose is very dried out, some dried blood surrounding nasal passages. Neck supple General: trachea midline Resp Effort and Inspection: symmetric chest movement and uses accessory muscles; Negative for able to speak in complete sentences Auscultation: diminished lung sounds; Negative for rales or wheezes Cardio S1 normal heart sound and S2 normal heart sound GI normal to inspection, nondistended, normoactive bowel sounds Auscultation: normoactive bowel sounds Extremity General Extremity: edema; Negative for clubbing or cyanosis Skin Skin Narrative: Pale, no breakdown noted Neuro CN's II-XII intact bilaterally, moves all extremities and no focal motor deficits Psych Psych Narrative: Conversational dyspnea, otherwise calm and engaged with conversation Activity / Motor Behavior: appropriate eye contact Memory / Cognition: memory grossly intact Insight: insight good Judgement: judgement good
--- NOTE | 2022-01-04 16:13 | PCM.PN.HOSP ---
Subjective Subjective Patient was seen and examined today, she is currently on Airvo, palliative care saw the patient today. Patient denies any fevers or chills Objective Data Objective Data Vital Signs: Vital Signs Temp Pulse Resp BP Pulse Ox 99.7 F H 104 H 18 116/71 94 01/04/22 15:40 01/04/22 15:40 01/04/22 15:40 01/04/22 15:40 01/04/22 15:40 Oxygen Flow Rate (L/min) 50 Oxygen Delivery Method Airvo Weight: 79 kg Body Mass Index (BMI) 30.8 Intake & Output: Intake and Output for Last 24 Hours 01/02/22 01/03/22 01/04/22 23:59 23:59 23:59 Intake Total 120 / 120 Output Total 1200 / 1200 Balance -1080 / -1080 Lab / Micro Data Result Diagrams: 01/04/22 05:10 01/04/22 05:10 Labs: Laboratory Results - last 24 hr 01/03/22 17:40: Sodium 139, Potassium 3.5, Chloride 104, Carbon Dioxide 30.0, Anion Gap 5, BUN 16, Creatinine 0.76, Estim Creat Clear Calc 34.90, Est GFR (MDRD) Af Amer 94, Est GFR (MDRD) Non-Af 78, BUN/Creatinine Ratio 21.2 H, Glucose 98, Calcium 8.8, Total Bilirubin 1.00, AST 23, ALT 19, Alkaline Phosphatase 112, Troponin I High Sens 37, Total Protein 8.5 H, Albumin 3.1 L, Globulin 5.4 H, Albumin/Globulin Ratio 0.6 L 01/03/22 18:46: WBC 8.1, RBC 4.31, Hgb 12.9, Hct 39.5, MCV 91.6, MCH 29.9, MCHC 32.7, RDW Std Deviation 52.3 H, RDW Coeff of Mercedez 15.6 H, Plt Count 285, MPV 10.8, Immature Gran % (Auto) 0.500, Neut % (Auto) 72.4 H, Lymph % (Auto) 16.8 L, [place] % (Auto) 7.2, Eos % (Auto) 2.5, Baso % (Auto) 0.6, Absolute Neuts (auto) 5.9, Absolute Lymphs (auto) 1.36, Nucleated RBC % 0 01/03/22 18:46: PT 17.3 H, INR 1.5, APTT 33.9 01/03/22 18:46: B-Natriuretic Peptide 1301.8 H 01/04/22 05:10: WBC 5.5, RBC 4.19 L, Hgb 12.5, Hct 38.4, MCV 91.6, MCH 29.8, MCHC 32.6, RDW Std Deviation 51.6 H, RDW Coeff of Merceedz 15.4 H, Plt Count 253, MPV 11.4, Immature Gran % (Auto) 0.400, Neut % (Auto) 86.2 H, Lymph % (Auto) 11.5 L, [place] % (Auto) 1.3, Eos % (Auto) 0.2, Baso % (Auto) 0.4, Absolute Neuts (auto) 4.7, Absolute Lymphs (auto) 0.63 L, Nucleated RBC % 0, Differential Comment SCANNED 01/04/22 05:10: Sodium 138, Potassium 3.8, Chloride 103, Carbon Dioxide 29.0, Anion Gap 6, BUN 14, Creatinine 0.53 L, Estim Creat Clear Calc 36.50, Est GFR (MDRD) Af Amer 142, Est GFR (MDRD) Non-Af 118, BUN/Creatinine Ratio 26.4 H, Glucose 152 H, Calcium 8.6 Micro: Microbiology 01/03/22 18:58 Nasal Secretion SARS-CoV-2 Antigen (Rapid) - Final 01/03/22 18:04 Mucosa - Nasopharyngeal Influenza Types A,B Direct FA (JAIME) - Final ABG Data ABG results: ABG 01/03/22 20:21 Specimen Type ART Sample Site R Brach pH 7.42 Bicarbonate Actual 27.9 H Total CO2 29 Base Excess 4 H O2 Saturation 96 O2 % 100 ABG pCO2 42.6 ABG pO2 80 Ignacio Test Negative O2 Delivery Device NRB Radiography Diagnostic Testing: Radiology Impression Chest X-Ray 01/03/22 18:12 IMPRESSION: Interstitial densities and possible patchy infiltrates bilaterally. Electronically Signed: Dilip Zeng DO at 18:57 EST Reading Location ID and State: [facility] / [place] Tel [phone], Service support , Echocardiogram 01/03/22 20:56 Interpretation Summary Normal LV size. Left ventricular systolic function is normal. The estimated ejection fraction is 55 %. Stage 1 diastolic dysfunction. D shaped septum in systole and diastole. The right atrium is moderately enlarged. Mild (1+) mitral valve insufficiency. Pulmonary artery systolic pressure is 78 mmHg. Ordering Physician: Ernst Menendez Referring Physician: Benedicto Zuleta Performed By: Jojo Vazquez, AUDELIA, RVT Rhythm Strip Rhythm Strip: Sinus Rhythm Rate: 85 Ectopy: None Physical Exam Const alert and oriented x3 Constitutional Narrative: Patient appears frail General Appearance: cooperative, well kempt and well developed Orientation / Consciousness: awake, oriented to person, oriented to place and oriented to time HEENT normocephalic, head/scalp atraumatic and moist oral mucous membranes Eyes PERRL, EOMs intact bilaterally and conjunctivae normal Neck nuchal rigidity, supple, no JVD and thyroid normal General: trachea midline Resp Auscultation: rales bilateral and diffuse; Negative for rhonchi or wheezes Cardio regular rate, regular rhythm, S1 normal heart sound, S2 normal heart sound, no murmurs, no rub and no gallops GI normal to inspection, nondistended, normoactive bowel sounds, soft to palpation, non-tender and non-distended Extremity no clubbing, cyanosis or edema Skin no rashes or lesions noted General Skin Exam: no breakdown Neuro oriented x3, CN's II-XII intact bilaterally, no focal motor deficits and no sensory deficits noted Sensorium / Orientation: awake and alert Speech: speech normal Psych affect normal Assessment & Plan Assessment/Plan (1) Shortness of breath: PLAN: 1. Acute on chronic hypoxic respiratory failure-secondary to end-stage pulmonary fibrosis-continue present treatment, continue to monitor pulse ox, IV corticosteroids will be added, patient was seen by palliative care today #2 pulmonary hypertension-patient is on IV Lasix at this time-I will increase this to 40 mg every 8 hours #3 pulmonary [id number] at this time, I will add IV corticosteroids Charges/Coding Visit Charges Inpatient E&M: 68801 Subs Hosp L2
[2022-01-04] MEDS: Potassium Chloride Oral Tablet 20 MEQ PO (17:03)
[2022-01-04] MEDS: Metoprolol(XL)Succ 50 MG Tablet PO (17:03)
[2022-01-05] VITALS (22 sets, daily range): BP systolic 114–140; BP diastolic 67–90; PULSE 68–89; RESP 18–24; TEMP 36.4–36.7; O2SAT 86–95
[2022-01-05] MEDS: Furosemide 40 MG/4 ML Vial IV ×3 (05:26→21:18)
[2022-01-05] MEDS: 0.9% Saline Lock 10 ML Syringe IV ×3 (05:31→21:19)
--- NOTE | 2022-01-05 05:53 | NURSING ---
This RN assisted pt to the BSC, on airvo 50L 92%. Pt appears to be SOB and 02 desats to 87%, denies other discomfort. Placed NRB on 10L, 02 sats now at 95%. Pt assisted back to bed, no other needs at this time.
--- NOTE | 2022-01-05 06:55 | NURSING ---
pt 02 sats was 97% on airvo 50L, 92% with NRB, took it off and kept airvo on pt sats now at 92%. Denies SOB/discomfort at this time.
[2022-01-05] MEDS: Ipratropium/Albuterol Sulfate 3 ML AMPUL.NEB INHALATION ×5 (07:19→22:20)
[2022-01-05] MEDS: Potassium Chloride Oral Tablet 20 MEQ PO ×2 (09:18→15:57)
[2022-01-05] MEDS: Enoxaparin 40 MG/0.4 ML Syringe SC (09:19)
[2022-01-05] MEDS: Nystatin Powder 15gm Bottle 1 APPLIC TOPICAL ×2 (09:19→21:20)
[2022-01-05] MEDS: Metoprolol(XL)Succ 50 MG Tablet PO (15:57)
--- NOTE | 2022-01-05 18:43 | PN.HOSP_ITS ---
Subjective Subjective Patient was seen and examined today, she is currently on Airvo, she appears comfortable and does not complain of any shortness of breath at rest. I will reorder labs for the patient tomorrow morning. Objective Data Objective Data Vital Signs: Vital Signs Temp Pulse Resp BP Pulse Ox 97.7 F L 86 18 137/82 H 92 01/05/22 15:15 01/05/22 15:57 01/05/22 15:15 01/05/22 15:57 01/05/22 15:15 Oxygen Flow Rate (L/min) 55 Oxygen Delivery Method Airvo Weight: 79 kg Body Mass Index (BMI) 30.8 Intake & Output: Intake and Output for Last 24 Hours 01/03/22 01/04/22 01/05/22 23:59 23:59 23:59 Intake Total 480 / 480 600 / 600 Output Total 1200 / 1200 900 / 900 Balance -720 / -720 -300 / -300 Lab / Micro Data Result Diagrams: 01/04/22 05:10 01/04/22 05:10 Micro: Microbiology 01/03/22 18:58 Nasal Secretion SARS-CoV-2 Antigen (Rapid) - Final 01/03/22 18:04 Mucosa - Nasopharyngeal Influenza Types A,B Direct FA (JAIME) - Final Rhythm Strip Rhythm Strip: Sinus Rhythm Rate: 85 Ectopy: None Physical Exam Const alert, oriented x3, no apparent distress and healthy appearing General Appearance: cooperative, well kempt and well developed Orientation / Consciousness: awake, oriented to person, oriented to place and oriented to time HEENT normocephalic and moist oral mucous membranes Eyes PERRL, EOMs intact bilaterally and conjunctivae normal Neck nuchal rigidity, supple, no JVD, thyroid normal and no carotid bruits General: trachea midline Resp normal respiratory effort and clear to auscultation bilaterally Auscultation: rales bilateral and diffuse; Negative for rhonchi or wheezes Cardio regular rate, regular rhythm, S1 normal heart sound, S2 normal heart sound, no murmurs, no rub and no gallops GI normal to inspection, nondistended, normoactive bowel sounds, soft to palpation, non-tender and non-distended Extremity no clubbing, cyanosis or edema Skin no rashes or lesions noted General Skin Exam: no breakdown Neuro oriented x3, CN's II-XII intact bilaterally, no focal motor deficits and no sensory deficits noted Sensorium / Orientation: awake and alert Speech: speech normal Psych affect normal Assessment & Plan Assessment/Plan (1) Shortness of breath: PLAN: 1. Acute on chronic hypoxic respiratory failure-secondary to end- stage pulmonary fibrosis-continue present treatment, continue to monitor pulse ox, IV corticosteroids and IV Lasix will continue at this time #2 pulmonary hypertension-patient is on IV Lasix at this time, BMP will be rechecked tomorrow morning #3 pulmonary [id number] at this time-again patient is on IV Solu-Medrol Charges/Coding Visit Charges Inpatient E&M: 34987 Subs Hosp L2
[2022-01-06] VITALS (19 sets, daily range): BP systolic 126–146; BP diastolic 77–101; PULSE 63–92; RESP 16–26; TEMP 36.4–36.7; O2SAT 86–94
[2022-01-06] MEDS: Ipratropium/Albuterol Sulfate 3 ML AMPUL.NEB INHALATION ×6 (03:51→23:14)
[2022-01-06 05:26] LABS: Anion Gap 5 (5-15); BUN 28 mg/dL (7-18); BUN/Creat Ratio 41.4 RATIO (10-20); Calcium,Total 9.1 mg/dL (8.5-10.1); Chloride 101 mmol/L (98-107); Creatinine, Serum 0.68 mg/dL (0.55-1.02); EST Glomerular Filtration Rate 89 mL/min (>60); Est Glom Filt Rate - Afr Amer 107 mL/min (>60); Glucose 174 mg/dL (74-106); Potassium 4.7 mmol/L (3.5-5.1); Sodium Level 137 mmol/L (136-145)
[2022-01-06] MEDS: 0.9% Saline Lock 10 ML Syringe IV ×3 (05:55→22:34)
[2022-01-06] MEDS: Furosemide 40 MG/4 ML Vial IV ×3 (05:55→22:32)
[2022-01-06] MEDS: Potassium Chloride Oral Tablet 20 MEQ PO ×2 (08:01→17:29)
[2022-01-06] MEDS: Enoxaparin 40 MG/0.4 ML Syringe SC (08:04)
[2022-01-06] MEDS: Nystatin Powder 15gm Bottle 1 APPLIC TOPICAL ×2 (08:04→22:33)
--- NOTE | 2022-01-06 15:14 | PN.HOSP_ITS ---
Subjective Subjective Patient was seen and examined today, she is still on Airvo, she appears comfortable, she does not complain of any shortness of breath at rest, she has no complaints of any fevers or chills. Objective Data Objective Data Vital Signs: Vital Signs Temp Pulse Resp BP Pulse Ox 97.7 F L 87 18 126/77 H 92 01/06/22 13:24 01/06/22 14:35 01/06/22 13:24 01/06/22 13:24 01/06/22 13:24 Oxygen Flow Rate (L/min) 55 Oxygen Delivery Method Airvo Weight: 79 kg Body Mass Index (BMI) 30.8 Intake & Output: Intake and Output for Last 24 Hours 01/04/22 01/05/22 01/06/22 23:59 23:59 23:59 Intake Total 480 / 480 700 / 700 440 / 440 Output Total 1200 / 1200 1350 / 1350 1475 / 1475 Balance -720 / -720 -650 / -650 -1035 / -1035 Lab / Micro Data Result Diagrams: 01/04/22 05:10 01/06/22 04:05 Labs: Laboratory Results - last 24 hr 01/06/22 04:05: Sodium 137, Potassium 4.7, Chloride 101, Carbon Dioxide 31.0, Anion Gap 5, BUN 28 H, Creatinine 0.68, Estim Creat Clear Calc 36.50, Est GFR (MDRD) Af Amer 107, Est GFR (MDRD) Non-Af 89, BUN/Creatinine Ratio 41.4 H, Glucose 174 H, Calcium 9.1 Micro: Microbiology 01/03/22 18:58 Nasal Secretion SARS-CoV-2 Antigen (Rapid) - Final 01/03/22 18:04 Mucosa - Nasopharyngeal Influenza Types A,B Direct FA (JAIME) - Final Rhythm Strip Rhythm Strip: Sinus Rhythm Rate: 85 Ectopy: None Physical Exam Const alert, oriented x3 and no apparent distress General Appearance: cooperative, well kempt and well developed Orientation / Consciousness: awake, oriented to person, oriented to place and oriented to time HEENT normocephalic, head/scalp atraumatic and moist oral mucous membranes Eyes PERRL, EOMs intact bilaterally and conjunctivae normal Neck nuchal rigidity, supple, no JVD and thyroid normal General: trachea midline Resp normal respiratory effort, no retractions, no use of accessory muscles and clear to auscultation bilaterally Resp Narrative: There are diffuse rales noted on inspiration over the lower lung kapadia bilaterally Auscultation: rales; Negative for rhonchi or wheezes Cardio regular rate, regular rhythm, S1 normal heart sound, S2 normal heart sound, no murmurs, no rub and no gallops GI normal to inspection, nondistended, normoactive bowel sounds, soft to palpation, non-tender and non-distended Extremity no clubbing, cyanosis or edema Skin no rashes or lesions noted, no wounds and skin turgor normal General Skin Exam: no breakdown Neuro oriented x3, CN's II-XII intact bilaterally, no focal motor deficits and no sensory deficits noted Sensorium / Orientation: awake and alert Speech: speech normal Psych affect normal Assessment & Plan Assessment/Plan (1) Pulmonary hypertension: (2) Shortness of breath: PLAN: 1. Acute on chronic hypoxic respiratory failure-secondary to end- stage pulmonary fibrosis-continue present treatment, continue to monitor pulse ox, IV corticosteroids and IV Lasix will continue at this time, I will recheck her BMP tomorrow #2 pulmonary hypertension-patient is on IV Lasix at this time, BMP will be rechecked tomorrow morning #3 pulmonary [id number] at this time-again patient is on IV Solu-Medrol Prognosis remains guarded at this time, patient is a DNR CC arrest no intubation. Charges/Coding Visit Charges Inpatient E&M: 62588 Subs Hosp L2
[2022-01-06] MEDS: Metoprolol(XL)Succ 50 MG Tablet PO (17:29)
[2022-01-07] VITALS (20 sets, daily range): BP systolic 129–149; BP diastolic 77–95; PULSE 63–98; RESP 18–22; TEMP 36.4–36.7; O2SAT 88–94
[2022-01-07] MEDS: Ipratropium/Albuterol Sulfate 3 ML AMPUL.NEB INHALATION ×4 (02:38→19:21)
[2022-01-07] MEDS: Furosemide 40 MG/4 ML Vial IV ×3 (06:07→22:20)
[2022-01-07] MEDS: 0.9% Saline Lock 10 ML Syringe IV ×2 (06:12→22:23)
[2022-01-07 06:28] LABS: Anion Gap 5 (5-15); BUN 32 mg/dL (7-18); BUN/Creat Ratio 45.3 RATIO (10-20); Calcium,Total 9.3 mg/dL (8.5-10.1); Chloride 100 mmol/L (98-107); Creatinine, Serum 0.71 mg/dL (0.55-1.02); EST Glomerular Filtration Rate 84 mL/min (>60); Est Glom Filt Rate - Afr Amer 102 mL/min (>60); Glucose 161 mg/dL (74-106); Potassium 3.9 mmol/L (3.5-5.1); Sodium Level 137 mmol/L (136-145)
[2022-01-07] MEDS: Nystatin Powder 15gm Bottle 1 APPLIC TOPICAL ×2 (07:54→22:21)
[2022-01-07] MEDS: Enoxaparin 40 MG/0.4 ML Syringe SC (07:54)
[2022-01-07] MEDS: Potassium Chloride Oral Tablet 20 MEQ PO ×2 (07:54→16:24)
--- NOTE | 2022-01-07 08:56 | CASEMGMT ---
Received a call from Coy with [facility]. She had received a referral for patient. She is going to call family today to set up appt to discuss their services. Tracee GEE
--- NOTE | 2022-01-07 14:23 | PN.HOSP_ITS ---
Subjective Subjective Patient was seen and examined today, she remains on Airvo at this time, according to nursing, they think that patient will be talking to hospice today, I asked the patient if she was going to be talking with hospice today and she stated she did not. Patient does not complain of any shortness of breath at rest. Objective Data Objective Data Vital Signs: Vital Signs Temp Pulse Resp BP Pulse Ox 98.0 F 87 20 H 141/79 H 92 01/07/22 14:05 01/07/22 14:05 01/07/22 14:05 01/07/22 14:05 01/07/22 14:05 Oxygen Flow Rate (L/min) 60 Oxygen Delivery Method Airvo Weight: 79 kg Body Mass Index (BMI) 30.8 Intake & Output: Intake and Output for Last 24 Hours 01/05/22 01/06/22 01/07/22 23:59 23:59 23:59 Intake Total 700 / 700 1040 / 1040 260 / 260 Output Total 1350 / 1350 2825 / 2825 825 / 825 Balance -650 / -650 -1785 / -1785 -565 / -565 Lab / Micro Data Result Diagrams: 01/04/22 05:10 01/07/22 05:12 Labs: Laboratory Results - last 24 hr 01/07/22 05:12: Sodium 137, Potassium 3.9, Chloride 100, Carbon Dioxide 32.0, Anion Gap 5, BUN 32 H, Creatinine 0.71, Estim Creat Clear Calc 36.50, Est GFR (MDRD) Af Amer 102, Est GFR (MDRD) Non-Af 84, BUN/Creatinine Ratio 45.3 H, Glucose 161 H, Calcium 9.3 Micro: Microbiology 01/03/22 18:58 Nasal Secretion SARS-CoV-2 Antigen (Rapid) - Final 01/03/22 18:04 Mucosa - Nasopharyngeal Influenza Types A,B Direct FA (JAIME) - Final Rhythm Strip Rhythm Strip: Sinus Rhythm Rate: 85 Ectopy: None Physical Exam Const alert, oriented x3, no apparent distress and healthy appearing General Appearance: cooperative, well kempt and well developed Orientation / Consciousness: awake, oriented to person, oriented to place and oriented to time HEENT normocephalic and moist oral mucous membranes Eyes PERRL, EOMs intact bilaterally and conjunctivae normal Neck nuchal rigidity, supple, no JVD and thyroid normal General: trachea midline Resp normal respiratory effort, no retractions, no use of accessory muscles and clear to auscultation bilaterally Auscultation: rales bilateral and diffuse; Negative for rhonchi or wheezes Cardio regular rate, regular rhythm, S1 normal heart sound, S2 normal heart sound, no murmurs, no rub and no gallops GI normal to inspection, nondistended, normoactive bowel sounds, soft to palpation, non-tender and non-distended Extremity no clubbing, cyanosis or edema Skin no rashes or lesions noted General Skin Exam: no breakdown Neuro oriented x3, CN's II-XII intact bilaterally, no focal motor deficits and no sensory deficits noted Sensorium / Orientation: awake and alert Speech: speech normal Psych affect normal Assessment & Plan Assessment/Plan (1) Shortness of breath: (2) Pulmonary hypertension: PLAN: 1. Acute on chronic hypoxic respiratory failure-secondary to end- stage pulmonary fibrosis-continue present treatment, continue to monitor pulse ox, IV corticosteroids and IV Lasix will continue at this time, continue to monitor BMP as needed #2 pulmonary hypertension-patient is on IV Lasix at this time, BMP will be monitored #3 pulmonary [id number]-[id number]-[id number] at this time-again patient is on IV Solu-Medrol Prognosis remains guarded at this time, patient is a DNR CC arrest no intubation. Patient and her family will talk with hospice. Charges/Coding Visit Charges Inpatient E&M: 25865 Subs Hosp L2
[2022-01-07] MEDS: Metoprolol(XL)Succ 50 MG Tablet PO (16:24)
--- NOTE | 2022-01-07 18:18 | NURSING ---
Hospice liason told this RN that patient signed Hospice papers and would like to go home with Hospice. This RN asked how much O2 they are capable of maintaining at home. Liason will call with an answer tomorrow morning. Liason stated they would be ready to facilitate DC tomorrow morning (Monday 01/08)
[2022-01-08] VITALS (21 sets, daily range): BP systolic 127–149; BP diastolic 77–87; PULSE 60–86; RESP 17–22; TEMP 36.2–36.4; O2SAT 90–94
[2022-01-08] MEDS: Furosemide 40 MG/4 ML Vial IV ×3 (05:25→21:31)
[2022-01-08] MEDS: 0.9% Saline Lock 10 ML Syringe IV ×3 (05:26→21:36)
[2022-01-08] MEDS: Ipratropium/Albuterol Sulfate 3 ML AMPUL.NEB INHALATION ×5 (07:06→22:40)
[2022-01-08] MEDS: Nystatin Powder 15gm Bottle 1 APPLIC TOPICAL ×2 (07:55→21:31)
[2022-01-08] MEDS: Enoxaparin 40 MG/0.4 ML Syringe SC (07:55)
[2022-01-08] MEDS: Potassium Chloride Oral Tablet 20 MEQ PO ×2 (07:55→16:49)
--- NOTE | 2022-01-08 09:43 | CASEMGMT ---
KODY called Coy at Hospice. Coy said papers were signed for Hospice. Coy asked about the d/c plan. KODY asked if they will be able to meet her O2 requirements at home. Coy said they can get 2 concentrators and piggy back them to get 20L. KODY will pass this along to the physician. Tracee Matias GRADE SETTER GERARD
--- NOTE | 2022-01-08 12:04 | CHAPLAIN ---
Type of Pastoral Visit _x__ Initial Visit ___ Follow-up Visit ___ On-call Visit ___ General Patient Visit ___ Spiritual Assessment ___ Family Conference ___ Bereavement ___ Rapid Response ___ Code Blue ___ Other (describe below) Pastoral Care Referral From _x__ Patient ___ Family ___ Nurse ___ Physician ___ Industrial Organizational Psychologist ___ Tread Booker ___ Other (describe below) Sacrament/Intervention _x__ Active listening ___ Anointing ___ Taoist ___ Bereavement ___ Communion _x__ Cordelia exploration ___ _x__ Life review _x__ Prayer ___ Reconciliation ___ Sacrament of Sick _x__ Supportive presence ___ Wedding ___ Other (describe below) Pastoral Comments RT had been working with the patient and when finished this director speech language was able to sit down with pt and ask questions about her feelings, ability to handle her illness, and her cordelia; pt speaks of accepting her situation and know how this is since four members of my family also had this; pt concern is for her children who are having more difficulty with acceptance; pt identifies herself as a Mormon with cordelia and daily prayers; pt welcomes the visit and prayers for her health and for her family; pt has great grandchildren on the way and hopes to see them
--- NOTE | 2022-01-08 14:26 | CASEMGMT ---
Respiratory therapy was able to put patient on 15L high flow and she is doing well. KODY spoke with Coy at Hospice and after talking with physician patient will be discharged home on Hospice tomorrow. Per RN patient is upset and feels like she does not know what is going on. KODY called Coy back and asked her to please call patient. Coy said they will call patient. Plan: discharge home on [facility]. Tracee GEE
[2022-01-08] MEDS: Metoprolol(XL)Succ 50 MG Tablet PO (16:48)
--- NOTE | 2022-01-08 18:03 | PN.HOSP_ITS ---
Subjective Subjective Patient was seen and examined today, she was seen by hospice yesterday and they are currently making arrangements to set up oxygen at her home. This will not be able to be set up until tomorrow.Patient is currently on high flow nasal cannula oxygen 15 L Objective Data Objective Data Vital Signs: Vital Signs Temp Pulse Resp BP Pulse Ox 97.5 F L 86 22 H 134/83 H 94 01/08/22 16:45 01/08/22 16:48 01/08/22 16:45 01/08/22 16:48 01/08/22 16:45 Oxygen Flow Rate (L/min) 15 Oxygen Delivery Method High Flow Weight: 79 kg Body Mass Index (BMI) 30.8 Intake & Output: Intake and Output for Last 24 Hours 01/06/22 01/07/22 01/08/22 23:59 23:59 23:59 Intake Total 1040 / 1040 500 / 640 380 / 380 Output Total 2825 / 2825 1125 / 1875 1700 / 1700 Balance -1785 / -1785 -625 / -1235 -1320 / -1320 Lab / Micro Data Result Diagrams: 01/04/22 05:10 01/07/22 05:12 Micro: Microbiology 01/03/22 18:58 Nasal Secretion SARS-CoV-2 Antigen (Rapid) - Final 01/03/22 18:04 Mucosa - Nasopharyngeal Influenza Types A,B Direct FA (JAIME) - Final Rhythm Strip Rhythm Strip: Sinus Rhythm Rate: 85 Ectopy: None Physical Exam Narrative alert, oriented x3, no apparent distress and healthy appearing General Appearance: cooperative, well kempt and well developed Orientation / Consciousness: awake, oriented to person, oriented to place and oriented to time HEENT normocephalic and moist oral mucous membranes Eyes PERRL, EOMs intact bilaterally and conjunctivae normal Neck nuchal rigidity, supple, no JVD and thyroid normal General: trachea midline Resp normal respiratory effort, no retractions, no use of accessory muscles and clear to auscultation bilaterally Auscultation: rales bilateral and diffuse; Negative for rhonchi or wheezes Cardio regular rate, regular rhythm, S1 normal heart sound, S2 normal heart sound, no murmurs, no rub and no gallops GI normal to inspection, nondistended, normoactive bowel sounds, soft to palpation, non-tender and non-distended Extremity no clubbing, cyanosis or edema Skin no rashes or lesions noted General Skin Exam: no breakdown Neuro oriented x3, CN's II-XII intact bilaterally, no focal motor deficits and no sensory deficits noted Sensorium / Orientation: awake and alert Speech: speech normal Psych affect normal Assessment & Plan Assessment/Plan (1) Shortness of breath: (2) Pulmonary hypertension: PLAN: 1. Acute on chronic hypoxic respiratory failure-secondary to end- stage pulmonary fibrosis-continue present treatment, continue to monitor pulse ox, IV corticosteroids and IV Lasix will continue at this time, continue to monitor BMP as needed, I will order another BMP tomorrow. Patient has agreed to hospice care when she is discharged home. #2 pulmonary hypertension-patient is on IV Lasix at this time, BMP will be monitored #3 pulmonary zeazydzt-huu-hzrox at this time-again patient is on IV Solu-Medrol Patient's CODE STATUS remains DNR CC arrest without intubation. Charges/Coding Visit Charges Inpatient E&M: 00787 Subs Hosp L2
[2022-01-09] VITALS (16 sets, daily range): BP systolic 111–131; BP diastolic 64–92; PULSE 61–87; RESP 16–24; TEMP 36.1–36.8; O2SAT 90–95
[2022-01-09] MEDS: Ipratropium/Albuterol Sulfate 3 ML AMPUL.NEB INHALATION ×4 (03:04→15:26)
[2022-01-09 06:30] LABS: Anion Gap 8 (5-15); BUN 37 mg/dL (7-18); BUN/Creat Ratio 47.7 RATIO (10-20); Chloride 95 mmol/L (98-107); Creatinine, Serum 0.78 mg/dL (0.55-1.02); EST Glomerular Filtration Rate 76 mL/min (>60); Est Glom Filt Rate - Afr Amer 92 mL/min (>60); Glucose 168 mg/dL (74-106); Potassium 3.9 mmol/L (3.5-5.1); Sodium Level 136 mmol/L (136-145)
[2022-01-09] MEDS: Furosemide 40 MG/4 ML Vial IV ×2 (06:32→13:22)
[2022-01-09] MEDS: 0.9% Saline Lock 10 ML Syringe IV ×2 (06:33→13:21)
[2022-01-09] MEDS: Potassium Chloride Oral Tablet 20 MEQ PO (08:28)
[2022-01-09] MEDS: Enoxaparin 40 MG/0.4 ML Syringe SC (08:28)
[2022-01-09] MEDS: Nystatin Powder 15gm Bottle 1 APPLIC TOPICAL (08:29)
--- NOTE | 2022-01-09 10:33 | PCM.DC.SUM ---
Providers Date of Admission: 01/03/22 Date of Discharge: 01/09/22 Primary Care Physician: Dr. Benedicto Zuleta DO Reason For Visit: PULM FIBROSIS AND PUL HTN Diagnosis Discharge Diagnosis (1) Shortness of breath: Status: Acute Code(s): R06.02 - Shortness of breath (2) Pulmonary hypertension: Status: Inactive Code(s): I27.20 - Pulmonary hypertension, unspecified (3) Acute and chronic respiratory failure with hypoxia: Status: Chronic Code(s): J96.21 - Acute and chronic respiratory failure with hypoxia Medications at Discharge Home Medications metoprolol succinate 50 mg tablet,extended release 24 hr 50 mg PO DINNER 06/29/18 ipratropium 0.5 mg-albuterol 3 mg (2.5 mg base)/3 mL nebulization soln 3 ml INHALATION Q4H.RT #180 vial 08/23/21 furosemide 40 mg PO DAILY 01/03/22 Hospital Course Operations None Summary of Care Provided Minutes Spent on Discharge: 36 Hospital Course: Mrs. Christiansen is an 81-year-old white female who presented to the emergency department at [facility] on 01/03/2022 with complaints of progressively worsening shortness of breath and cough with lying flat. She has a known history of chronic hypoxic respiratory failure due to pulmonary fibrosis/pulmonary hypertension/COPD for which she wears 9 L of oxygen at baseline. There evidently was some concern for sick exposure at home and she had not been wearing her oxygen continuously due to developing epistaxis. She was markedly hypoxic when the squad arrived were able to get her oxygen levels into the 90s with a nonrebreather. She was otherwise in the upper 70s on her regular nasal cannula. In the emergency department she had a markedly elevated BNP. Her Covid rapid was negative as well as her influenza a and B antigens. Her chest x-ray showed interstitial densities with possible patchy bilateral infiltrates. In the emergency department she was given Solu-Medrol and admitted for further evaluation and management. Upon admission she was treated with IV diuretics and continued on IV steroids. It was felt that the interstitial infiltrates were likely chronic and not infectious related. She follows with pulmonary medicine as an outpatient and was last seen on 11/23/2021 at which time she was treated with extra diuresis as she was volume overloaded. CODE STATUS was discussed with the patient and was determined to be DNR CCA with no intubation. She indicated she had a very poor quality of life and palliative care was therefore consulted. She evidently is unable to perform any ADLs or do any enjoyable things and gets dyspneic with minimal exertion and unfortunately this had progressed. After palliative services met with the patient her goals aligned predominantly with hospice care and her daughter was on board with her decision however her son was resistant. The hospice team was consulted and she was deemed appropriate for hospice care and was able to be discharged to her home on hospice services on 01/09/2022. The time of discharge she remained stable on 15 L nasal cannula with oxygen saturations 90 to 92%. Ultimately goal oxygenation for her would be 88 to 92% with any supplemental oxygen she is on. She was maintained on her metoprolol to avoid fast heart rates which could worsen her respiratory status she was also maintained on her Lasix to help with her pulmonary artery hypertension and as needed aerosols. Hospice services will manage the rest of her medications after discharge. 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 COPD Hypertension Physical Exam Const alert, oriented x3 and no apparent distress Constitutional Narrative: Obese elderly white female sitting up in bed on heated high flow nasal cannula, currently sleeping but she awaken easily, denied any current complaints or issues with breathing General Appearance: cooperative, comfortable, well kempt and well developed Orientation / Consciousness: awake Nutritional Appearance: obese HEENT normocephalic and head/scalp atraumatic HEENT Narrative: Mallampati is 2-3, no thrush Eyes PERRL, EOMs intact bilaterally and conjunctivae normal Eyes Narrative: No scleral icterus Neck no lymphadenopathy and supple Neck Narrative: Trachea midline, no thyroid enlargement Resp normal respiratory effort, no retractions and no use of accessory muscles Resp Narrative: Diffusely diminished with scattered fine crackles, no signs of respiratory extremis, currently on 15 L heated high flow nasal cannula Auscultation: crackles; Negative for rhonchi or wheezes Cardio regular rate, regular rhythm, S1 normal heart sound, S2 normal heart sound, no rub, no gallops and no clicks; Negative for no murmurs Cardio Narrative: Few ectopic beats, 2 out of 6 systolic murmur GI normal to inspection, nondistended, normoactive bowel sounds, soft to palpation, non-tender and non-distended Extremity Extremity Narrative: Trace bilateral lower extremity edema General Extremity: edema Skin no wounds, skin turgor normal and no jaundice Skin Narrative: Skin is thin and pale with scattered ecchymosis in multiple phases of healing Neuro oriented x3, CN's II-XII intact bilaterally, moves all extremities and no focal motor deficits Sensorium / Orientation: awake and alert Speech: speech normal Psych affect normal Psych Narrative: Very pleasant Weight / BMI Weight Weight: 79 kg Body Mass Index (BMI) 30.8 ABG / Lab / Microbiology Data Result Diagrams: 01/04/22 05:10 01/09/22 05:07 Laboratory: Laboratory Results - last 24 hr 01/09/22 05:07: Sodium 136, Potassium 3.9, Chloride 95 L, Carbon Dioxide 33.0 H, Anion Gap 8, BUN 37 H, Creatinine 0.78, Estim Creat Clear Calc 36.50, Est GFR (MDRD) Af Amer 92, Est GFR (MDRD) Non-Af 76, BUN/Creatinine Ratio 47.7 H, Glucose 168 H, Calcium 9.0 Microbiology: Microbiology 01/03/22 18:58 Nasal Secretion SARS-CoV-2 Antigen (Rapid) - Final 01/03/22 18:04 Mucosa - Nasopharyngeal Influenza Types A,B Direct FA (JAIME) - Final D/C Instructions Discharge Diet: No restrictions Discharge Activity: - (Activity as tolerated) Meaningful Use Info Meaningful Use Diagnoses (Choose all that apply): None applicable Discharge Plan Admission Admit Date/Time: 01/03/22 20:44 Primary Reason for Your Visit: Shortness of Breath Attending Provider: Laura Yo Primary Care Provider: Benedicto Zuleta Discharge Orders/Prescriptions Prescriptions: Continued metoprolol succinate 50 mg tablet extended release 24 hr 50 mg PO DINNER RF: 0 ipratropium-albuterol 0.5 mg-3 mg(2.5 mg base)/3 mL solution for nebulization 3 ml INHALATION Q4H.RT Qty: 180 RF: 6 furosemide 40 MG tablet 40 mg PO DAILY RF: 0 Referrals / Follow Up: Benedicto Zuleta DO [Primary Care Provider] - Disposition Disposition (needs filled in before D/C Order can be placed): Hospice in Home Charges/Coding Visit Charges Inpatient E&M: 78821 Disch Hosp
--- NOTE | 2022-01-09 10:52 | CASEMGMT ---
Patient is ready for discharge home on Hospice. KODY called patient's daughter Emilie and left her a voice mail requesting a return call regarding d/c today. Patient's daughter Emilie called back. Emilie said there is just a 5L tank at the house. KODY will contact Hospice as SW will need to make sure proper equipment was delivered. KODY told Emilie SW will arrange transportation due to patient needing so much O2. Emilie said anytime is fine with her. KODY called Hospice and spoke with Lynn. KODY let Lynn know about the one concentrator. Lynn said there should be 2 that will go up to 20L. Lynn will check on this and get back with KODY. KODY updated RN. Tracee Matias TEST CENTER ADMINISTRATOR GERARD
--- NOTE | 2022-01-09 11:31 | CASEMGMT ---
Coy called KODY back and the equipment will be delivered hopefully between 1 and 2p today. No equipment has been delivered yet so the concentrator patient's daughter is looking at is not what Hospice had delivered. Patient will be getting 2 10L concentrators that can go up to 20L. KODY called Emilie and let her know above information. KODY asked Emilie to call KODY when equipment has been delivered and KODY will set up transport. Tracee Matias CLINICAL TRIAL LEADER GERARD
--- NOTE | 2022-01-09 13:31 | CASEMGMT ---
KODY received a call from patient's daughter, Emilie. Equipment has been delivered. Emilie will be bringing in patient's robe that she wanted before she left the hospital. KODY arranged for patient to get picked up at 1530 via cot. KODY notified discharge door operator, RN, patient, Coy at Hospice, and left a message for patient's daughter. D/c summary and DNR faxed to [facility]. Plan: d/c home on [facility] services. [facility] transported patient home. Tracee Matias BLOCK TESTERMaría Elena GEE
--- NOTE | 2022-01-09 14:37 | CASEMGMT ---
KODY spoke with patient's daughter Emilie when she arrived at [facility]. She got KODY's message regarding quill picking machine operator time. Tracee Matias MSW GERARD
== END 2022-01-09 15:49 | disposition hospice, home (50) | DRG 196 ==
LOC: ED 19:39 → PCU 20:39
PROVIDERS: Internal Medicine; Admitting Provider Family Medicine; Emergency Provider Emergency Medicine; PCP Family Medicine; Visit Provider Internal Medicine
DX: J84.10 Pulmonary fibrosis, unspecified (principal); J96.21 Acute and chronic respiratory failure with hypoxia; I27.20 Pulmonary hypertension, unspecified; J44.9 Chronic obstructive pulmonary disease, unspecified; I10 Essential (primary) hypertension; Z20.822 Contact with and (suspected) exposure to COVID-19; R94.31 Abnormal electrocardiogram [ECG] [EKG]; Z87.891 Personal history of nicotine dependence; Z66 Do not resuscitate; Z51.5 Encounter for palliative care; Z79.899 Other long term (current) drug therapy; E66.9 Obesity, unspecified; Z68.30 Body mass index [BMI] 30.0-30.9, adult; Z99.81 Dependence on supplemental oxygen
CPT/HCPCS: 36415; 36600; 71045; 80048; 80053; 82803; 83880; 84484; 85025; 85610; 85730; 87426; 87804; 93005; 93306; 94003; 94640; 94660; 97110; 97162; 97166; 97530; 97535; 99285; A4216; J1940